=== PATIENT | female | born 1950 | race Caucasian/White ===

== ENCOUNTER → 2017-07-26 | Outpatient (CLI) | payer MEDICARE | LOC: M RAD 14:09 | DX: E04.1 Nontoxic single thyroid nodule (principal) | CPT/HCPCS: 76536 ==

== ENCOUNTER → 2017-08-15 | Outpatient (CLI) | payer MEDICARE | LOC: M RAD 08:50 | DX: E05.00 Thyrotoxicosis with diffuse goiter without thyrotoxic crisis or storm (principal) | CPT/HCPCS: 78012 ==

== ENCOUNTER → 2017-10-18 | Outpatient (CLI) | payer MEDICARE ==
[2017-10-18 12:26] LABS: FREE T4 1.08 NG/DL (0.76-1.46)
[2017-10-18 12:28] LABS: TOTAL T3 123.1 NG/DL (60.0-181.0)
== END ==
LOC: M LAB 11:22
DX: E05.00 Thyrotoxicosis with diffuse goiter without thyrotoxic crisis or storm (principal)
CPT/HCPCS: 84443

== ENCOUNTER → 2020-02-26 | Outpatient (CLI) | payer MEDICARE ==
[2020-02-26 12:12] LABS: HEMATOCRIT 40.2 % (36.0-47.0); HEMOGLOBIN 12.9 g/dl (12.0-15.5); MEAN CORPUSCULAR HEMOGLOBIN 30.4 pg (27.0-33.0); MEAN CORPUSCULAR HGB CONC 32.1 g/dl (32.0-36.5); MEAN CORPUSCULAR VOLUME 94.8 fl (80.0-96.0); PLATELET COUNT, AUTOMATED 288 10^3/uL (150-450); RED BLOOD COUNT 4.24 10^6/uL (4.00-5.40); WHITE BLOOD COUNT 8.7 10^3/uL (4.0-10.0)
[2020-02-26 12:44] LABS: ALBUMIN 3.6 GM/DL (3.2-5.2); BILIRUBIN,TOTAL 0.5 MG/DL (0.2-1.0); CALCIUM LEVEL 9.4 MG/DL (8.8-10.2); CHOLESTEROL RISK RATIO 4.756 (<5); CREATININE FOR GFR 1.15 MG/DL (0.55-1.30); POTASSIUM SERUM 4.6 MEQ/L (3.5-5.1); THYROID STIMULATING HORMONE 1.28 uIU/ML (0.358-3.740); TOTAL PROTEIN 8.1 GM/DL (6.4-8.2)
[2020-02-26 12:48] LABS: TOTAL 25(OH) VITAMIN D 24.1 NG/ML (30.0-100.0)
[2020-02-26 13:22] LABS: HEMOGLOBIN A1c 6.3 %
--- NOTE | 2020-02-28 19:23 | ECGEPIP ---
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
--- NOTE | 2020-03-03 12:51 | REP ---
CHEST X-RAY: 2-VIEWS HISTORY: Hypertension and fibroglandular. Hypothyroid. COMPARISON: Chest x-ray 10/22/2006. FINDINGS: The lungs are well-inflated and remain clear. The pleural angles are sharp. Heart size is normal. There is minimal linear fibrosis anteriorly in the retrosternal clear space on the lateral radiograph. There are degenerative disc changes in the thoracic spine. Heart size is normal. Pulmonary vasculature is not increased. IMPRESSION: No active disease. MTDD
== END ==
LOC: M LAB 10:44
PROVIDERS: ATTEND Family Medicine
DX: E03.9 Hypothyroidism, unspecified (principal); I10 Essential (primary) hypertension; R53.83 Other fatigue; Z79.899 Other long term (current) drug therapy

== ENCOUNTER 2020-11-05 18:39 | Emergency (ER) | payer MEDICARE ==
[~2020-11-05] VITALS: Ht 170.2 cm; Wt 85.8 kg
[2020-11-05] MEDS ORDERED: CAND16TA7 (18:48)
[2020-11-05] MEDS ORDERED: ERGO500029 (18:49)
[2020-11-05] MEDS ORDERED: PROP20TA72 (18:49)
[2020-11-05] MEDS ORDERED: KETOROLAC 30 MG/ML 1ML VIAL IV ONE (19:45)
[2020-11-05] MEDS ORDERED: NS 500 ML IV ONE (19:45)
[2020-11-05 19:50] LABS: BASO % 0.3 % (0.0-1.0); EOS # 0.1 10^3/uL (0.0-0.5); EOS % 1.4 % (0.0-3.0); HEMATOCRIT 40.8 % (36.0-47.0); HEMOGLOBIN 13.2 g/dl (12.0-15.5); LYMPH # 2.3 10^3/uL (1.5-5.0); LYMPH % 22.9 % (24.0-44.0); MEAN CORPUSCULAR HEMOGLOBIN 30.8 pg (27.0-33.0); MEAN CORPUSCULAR HGB CONC 32.4 g/dl (32.0-36.5); MEAN CORPUSCULAR VOLUME 95.1 fl (80.0-96.0); MONO # 0.9 10^3/uL (0.0-0.8); MONO % 9.3 % (2.0-8.0); NEUTROPHILS # 6.5 10^3/uL (1.5-8.5); NEUTROPHILS % 65.5 % (36.0-66.0); PLATELET COUNT, AUTOMATED 278 10^3/uL (150-450); RED BLOOD COUNT 4.29 10^6/uL (4.00-5.40); WHITE BLOOD COUNT 9.9 10^3/uL (4.0-10.0)
[2020-11-05 20:10] LABS: ALBUMIN 3.8 GM/DL (3.2-5.2); ALT/SGPT 19 U/L (12-78); BILIRUBIN,DIRECT < 0.1 MG/DL (0.0-0.2); BILIRUBIN,TOTAL 0.4 MG/DL (0.2-1.0); LIPASE 191 U/L (73-393); TOTAL PROTEIN 8.5 GM/DL (6.4-8.2)
--- NOTE | 2020-11-05 21:13 | REPVR ---
PROCEDURE INFORMATION: Exam: CT Abdomen And Pelvis Without Contrast Exam date and time: 11/05/2020 8:15 PM Age: 70 years old Clinical indication: Other: L flank pain, difficulty urinating, HX of stones TECHNIQUE: Imaging protocol: Computed tomography of the abdomen and pelvis without contrast. Radiation optimization: All CT scans at this facility use at least one of these dose optimization techniques: automated exposure control; mA and/or kV adjustment per patient size (includes targeted exams where dose is matched to clinical indication); or iterative reconstruction. COMPARISON: No relevant prior studies available. FINDINGS: Liver: Normal. No mass. Gallbladder and bile ducts: Normal. No calcified stones. No ductal dilation. Pancreas: Normal. No ductal dilation. Spleen: Normal. No splenomegaly. Adrenal glands: Normal. No mass. Kidneys and ureters: 3 mm obstructing calculus at the left ureteral vesicular junction. Mild left hydroureter and hydronephrosis. Multiple bilateral large renal calculi. The largest on the right measures 3 cm at the lower pole of the right kidney. The largest on the left measures 2.8 cm at the lower pole. Stomach and bowel: Diverticulosis of the sigmoid colon. Appendix: No evidence of appendicitis. Intraperitoneal space: Unremarkable. No free air. No significant fluid collection. Vasculature: Unremarkable. No abdominal aortic aneurysm. Lymph nodes: Unremarkable. No enlarged lymph nodes. Urinary bladder: Unremarkable as visualized. Reproductive: Unremarkable as visualized. Bones/joints: In degenerative changes of bilateral hip joints. Soft tissues: Unremarkable. IMPRESSION: Mild left hydronephrosis and hydroureter with a 3 mm obstructing calculus at the left ureteral vesicular junction. Electronically signed by: Nitin Bowman On 11/05/2020 21:13:17 PM
[2020-11-05] MEDS ORDERED: FLOM0.4C39 PO (22:07)
[2020-11-05] MEDS ORDERED: MACR100C43 PO (22:09)
[2020-11-05] MEDS ORDERED: HYDR-3713 PO (22:10)
[2020-11-05 22:15] VITALS: BP 129/59
[2020-11-05] MEDS ORDERED: TAMSULOSIN 0.4 MG CAP PO ONE (22:15)
== END 2020-11-05 22:37 | disposition home or self-care (01) ==
LOC: M ED 18:39
DX: N13.2 Hydronephrosis with renal and ureteral calculous obstruction (principal); N39.0 Urinary tract infection, site not specified; E86.0 Dehydration; N23 Unspecified renal colic; I10 Essential (primary) hypertension; R00.2 Palpitations; Z88.0 Allergy status to penicillin; Z88.2 Allergy status to sulfonamides; Z79.899 Other long term (current) drug therapy
CPT/HCPCS: 74176; 80047; 80076; 81001; 83690; 85025; 87086; 96361; 96374; 99284; J1885

== ENCOUNTER 2020-12-18 08:02 | Emergency (ER) | payer MEDICARE ==
[~2020-12-18] VITALS: Ht 167.6 cm; Wt 85.3 kg
[~2020-12-18 08:02] MED LIST: CAND16TA7; ERGO500029; FLOM0.4C39 PO; HYDR-3713 PO; MACR100C43 PO; PROP20TA72
[2020-12-18] MEDS ORDERED: AZIT500T5 PO (08:14)
[2020-12-18] MEDS ORDERED: ACET1TAB55 PO (08:14)
[2020-12-18] MEDS ORDERED: ACETAMINOPHEN 500 MG TAB PO ONE (09:35)
[2020-12-18] MEDS ORDERED: NS 1,000 ML IV ONE (09:35)
[2020-12-18 10:04] LABS: BASO % 0.2 % (0.0-1.0); EOS % 0.1 % (0.0-3.0); HEMATOCRIT 38.1 % (36.0-47.0); HEMOGLOBIN 12.4 g/dl (12.0-15.5); LYMPH # 1.9 10^3/uL (1.5-5.0); LYMPH % 14.1 % (24.0-44.0); MEAN CORPUSCULAR HEMOGLOBIN 30.6 pg (27.0-33.0); MEAN CORPUSCULAR HGB CONC 32.5 g/dl (32.0-36.5); MEAN CORPUSCULAR VOLUME 94.1 fl (80.0-96.0); MONO # 0.8 10^3/uL (0.0-0.8); MONO % 5.8 % (2.0-8.0); NEUTROPHILS # 10.5 10^3/uL (1.5-8.5); NEUTROPHILS % 79.3 % (36.0-66.0); PLATELET COUNT, AUTOMATED 267 10^3/uL (150-450); RED BLOOD COUNT 4.05 10^6/uL (4.00-5.40); WHITE BLOOD COUNT 13.3 10^3/uL (4.0-10.0)
[2020-12-18 10:36] LABS: CALCIUM LEVEL 9.3 MG/DL (8.8-10.2); CREATININE FOR GFR 1.16 MG/DL (0.55-1.30); GLOMERULAR FILTRATION RATE 49.3 (>45); POTASSIUM SERUM 4.4 MEQ/L (3.5-5.1)
--- NOTE | 2020-12-18 12:33 | REP ---
INDICATION: low back pain, h/o kidney stones, UTI. COMPARISON: Multiple the latest 11/05/2020 TECHNIQUE: Standard noncontrast enhanced stone protocol helical technique FINDINGS: The lung bases are essentially clear and unchanged. The small calculus seen previously in the left ureterovesical junction is no longer present. Slight degree of hydronephrosis and hydroureter seen on the prior exam has abated. Chronic bilateral staghorn calculi are again noted and appear unchanged. Other chronic bilateral renal changes are noted status quo. There are multiple bilateral renal cysts. Once again, multiple appendicoliths are again identified and are unchanged from the latest prior, however, these have developed since the 12/22/2011 CT. There are no other appendiceal changes. There is no free fluid or free air. There is sigmoid colon diverticulosis status quo. There is no change in the solid intra-abdominal organs are wall bladder. There is no change in appearance of the abdominal aorta or para-aortic regions. The pancreas and adrenal glands are unchanged. Bone window technique throughout the examination shows chronic osseous changes status quo. IMPRESSION: 1. Resolved previously seen acute left renal findings and left UV junction calculus as described above. 2. Bilateral chronic renal changes as described above. 3. Sigmoid colon diverticulosis. 4. Other findings as described above. <Electronically signed by Carlos Adam > 12/18/20 [id number]
[2020-12-18] MEDS ORDERED: CEFD300C PO (13:00)
[2020-12-18 13:28] VITALS: BP 120/58
== END 2020-12-18 13:24 | disposition home or self-care (01) ==
LOC: M ED 08:02
DX: N39.0 Urinary tract infection, site not specified (principal); N28.1 Cyst of kidney, acquired; K57.30 Diverticulosis of large intestine without perforation or abscess without bleeding; I48.91 Unspecified atrial fibrillation; I10 Essential (primary) hypertension; Z79.899 Other long term (current) drug therapy; Z88.0 Allergy status to penicillin; Z88.1 Allergy status to other antibiotic agents; Z88.2 Allergy status to sulfonamides; Z88.8 Allergy status to other drugs, medicaments and biological substances

== ENCOUNTER → 2021-01-14 | Outpatient (CLI) | payer MEDICARE ==
[~2021-01-14] MED LIST changes: +ACET1TAB55 PO; +AZIT500T5 PO; -CAND16TA7; +CAND16TA7 PO; +CEFD300C PO; +D31000TA2 PO; -PROP20TA72; +PROP20TA72 PO
== END ==
LOC: M LABSMTC 12:49
PROVIDERS: ATTEND Anesthesiology
DX: Z01.818 Encounter for other preprocedural examination (principal); I12.9 Hypertensive chronic kidney disease with stage 1 through stage 4 chronic kidney disease, or unspecified chronic kidney disease; N18.9 Chronic kidney disease, unspecified; Z20.822 Contact with and (suspected) exposure to COVID-19; Z79.899 Other long term (current) drug therapy
CPT/HCPCS: 36415; 71046; 80053; 80061; 81001; 83036; 84443; 85027; 85610; 87086; 93005; U0003

== ENCOUNTER → 2021-01-14 | Outpatient (CLI) | payer MEDICARE ==
--- NOTE | 2021-01-14 11:17 | REP ---
INDICATION: HTN *LABS 1ST, EKG 2ND, XRY 3RD* COMPARISON: None. TECHNIQUE: PA and lateral. FINDINGS: The mediastinum and cardiac silhouette are normal. The lung stiles are clear and without acute consolidation, effusion, or pneumothorax. The skeletal structures are intact and normal. IMPRESSION: No acute cardiopulmonary process. 02/26/2020 <Electronically signed by Scott Calixto > 01/14/21 1113
[2021-01-14 12:04] LABS: HEMATOCRIT 40.4 % (36.0-47.0); HEMOGLOBIN 12.8 g/dl (12.0-15.5); MEAN CORPUSCULAR HEMOGLOBIN 30.5 pg (27.0-33.0); MEAN CORPUSCULAR HGB CONC 31.7 g/dl (32.0-36.5); MEAN CORPUSCULAR VOLUME 96.2 fl (80.0-96.0); PLATELET COUNT, AUTOMATED 234 10^3/uL (150-450); WHITE BLOOD COUNT 9.2 10^3/uL (4.0-10.0)
[2021-01-14 12:06] LABS: APPEARANCE, URINE HAZY (CLEAR); BACTERIA, URINE AUTO 1+ (NEGATIVE); BILIRUBIN, URINE AUTO NEGATIVE (NEGATIVE); BLOOD, URINE BLOOD 3+ (NEGATIVE); COLOR, URINE YELLOW (YELLOW); GLUCOSE, URINE (UA) AUTO NEGATIVE (NEGATIVE); KETONE, URINE AUTO NEGATIVE (NEGATIVE); LEUKOCYTE ESTERASE, URINE AUTO 1+ (NEGATIVE); MUCUS, URINE SMALL (NEGATIVE); NITRITE, URINE AUTO NEGATIVE (NEGATIVE); PROTEIN, URINE AUTO NEGATIVE (NEGATIVE); RBC, URINE AUTO 118 /HPF (0-3); SPECIFIC GRAVITY URINE AUTO 1.012 (1.002-1.035); SQUAMOUS EPITHELIAL CELL UR AU 1 /HPF (0-6); UROBILINOGEN, URINE AUTO 0.2 mg/dL (0.0-2.0); WBC, URINE AUTO 13 /HPF (0-3)
[2021-01-14 12:17] LABS: INR 1.1; PROTHROMBIN TIME 14.6 SECONDS (12.7-14.5)
[2021-01-14 12:46] LABS: HEMOGLOBIN A1c 6.4 %
[2021-01-14 13:02] LABS: ALBUMIN 3.5 GM/DL (3.2-5.2); BILIRUBIN,TOTAL 0.7 MG/DL (0.2-1.0); CALCIUM LEVEL 9.3 MG/DL (8.8-10.2); CHOLESTEROL RISK RATIO 4.425 (<5); CREATININE FOR GFR 1.07 MG/DL (0.55-1.30); GLOMERULAR FILTRATION RATE 54.1 (>45); POTASSIUM SERUM 4.5 MEQ/L (3.5-5.1); THYROID STIMULATING HORMONE 0.976 uIU/ML (0.358-3.740); TOTAL PROTEIN 7.9 GM/DL (6.4-8.2)
--- NOTE | 2021-01-15 10:04 | ECGEPIP ---
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
== END ==
LOC: M LAB 10:17
PROVIDERS: ATTEND Family Medicine
DX: Z01.818 Encounter for other preprocedural examination (principal); I12.9 Hypertensive chronic kidney disease with stage 1 through stage 4 chronic kidney disease, or unspecified chronic kidney disease; N18.9 Chronic kidney disease, unspecified

== ENCOUNTER → 2021-02-03 | Outpatient (POV) | payer MEDICARE ==
[~2021-02-03] VITALS: Ht 170.2 cm; Wt 81.8 kg
[2021-02-03 08:25] VITALS: BP 138/63
--- NOTE | 2021-02-05 08:44 | IRCOV ---
[facility] IR Consult Office Visit IR Consult Office Visit DATE: Feb 03, 2021 REASON FOR CONSULTATION/CHIEF COMPLAINT: Left kidney stone. Needs PCNL access. HISTORY OF PRESENT ILLNESS: 70-year-old female with 10-year long history of bilateral kidney stones. Patient reports intermittent infections requiring antibiotics. Patient recently passed a stone which landed her in the ER with flank pain. She reports passing stones up to 8 mm in size. She reports 1 prior lithotripsy many years ago, she is not sure which kidney. She cannot recall when. She denies any current left flank pain. She denies any hematuria, fevers or chills. ALLERGIES: Please see below. HOME MEDICATIONS: Please see below. PAST MEDICAL HISTORY: Hypertension UTI PAST SURGICAL HISTORY: Hysterectomy Heart ablation 2003 Lithotripsy x1 FAMILY HISTORY: kidney stones. SOCIAL HISTORY: Non-smoker. Denies alcohol or drugs. REVIEW OF SYSTEMS: Otherwise negative. PHYSICAL EXAMINATION: VITAL SIGNS: Please see below. GENERAL APPEARANCE: Appears well. Comfortable at rest. HEENT: No scleral icterus. RESPIRATORY: Normal breathing at rest. CARDIOVASCULAR: Normal rate. ABDOMEN: Soft nontender. EXTREMITIES: No edema. NEUROLOGICAL: Alert and oriented. PSYCHIATRIC: Appropriate to circumstance. LABORATORY DATA: 12/25/2020 hemoglobin 12.8 hematocrit 40.4 WBC 9.2 platelets 234. Sodium 139 potassium 4.5 BUN 22 creatinine 1.07 GFR 54.1 INR 1.1 Imaging: I personally reviewed the CT abdomen pelvis without contrast performed 12/18/2020. Bilateral staghorn calculi. Low-density cysts in the kidneys bilaterally. Right kidney is atrophic compared to the left kidney. No significant hydronephrosis or hydroureter. ASSESSMENT/PLAN: 70-year-old female with long history of bilateral kidney stones, presents for left PCNL access. We discussed the risks and benefits of left nephroureteral access and catheter placement for PCNL. Patient agreed to proceed. We have scheduled the patient for left nephroureteral access and catheter placement for PCNL. I spent 30 minutes in consultation with the patient. Thank you for this referral. CC Dr. Givens Allergies Coded Allergies: Penicillins (Verified Allergy, Mild, rash, 01/13/21) Quinolones (Verified Allergy, Unknown, 01/13/21) Sulfa (Sulfonamide Antibiotics) (Verified Allergy, Unknown, 01/13/21) Home Medications Scheduled Acetaminophen (Acetaminophen), 1 TAB PO DAILYPRN, (Reported) Candesartan Cilexetil (Candesartan Cilexetil), PO QHS, (Reported) Cholecalciferol (Vitamin D3) (Vitamin D3), 1,000 UNITS PO PRN, (Reported) Propranolol HCl (Propranolol HCl), PO BID, (Reported) VS, I&O, 24H, Fishbone Vital Signs/I&O Vital Signs Date Time Temp Pulse Resp B/P (MAP) Pulse Ox O2 Delivery O2 Flow Rate FiO2 02/03/21 08:25 97.4 72 20 138/63 (88) 100 Room Air RADHA OGDEN MD Feb 05, 2021 08:44
== END ==
LOC: M IRPOV 08:05
PROVIDERS: ATTEND Radiology Diagnostic Radiology
DX: N20.0 Calculus of kidney (principal); I10 Essential (primary) hypertension; Z79.899 Other long term (current) drug therapy; Z87.440 Personal history of urinary (tract) infections; Z88.0 Allergy status to penicillin; Z88.1 Allergy status to other antibiotic agents; Z88.2 Allergy status to sulfonamides; Z90.710 Acquired absence of both cervix and uterus

== ENCOUNTER → 2021-02-24 | Outpatient (CLI) | payer MEDICARE ==
[2021-02-24 13:11] LABS: HEMATOCRIT 39.8 % (36.0-47.0); HEMOGLOBIN 12.6 g/dl (12.0-15.5); MEAN CORPUSCULAR HEMOGLOBIN 30.2 pg (27.0-33.0); MEAN CORPUSCULAR HGB CONC 31.7 g/dl (32.0-36.5); MEAN CORPUSCULAR VOLUME 95.4 fl (80.0-96.0); PLATELET COUNT, AUTOMATED 266 10^3/uL (150-450); RED BLOOD COUNT 4.17 10^6/uL (4.00-5.40); WHITE BLOOD COUNT 9.8 10^3/uL (4.0-10.0)
[2021-02-24 13:20] LABS: INR 0.98; PROTHROMBIN TIME 13.4 SECONDS (12.7-14.5)
[2021-02-24 14:53] LABS: HEMOGLOBIN A1c 6.1 %
[2021-02-24 17:45] LABS: ALBUMIN 3.7 GM/DL (3.2-5.2); BILIRUBIN,TOTAL 0.6 MG/DL (0.2-1.0); CALCIUM LEVEL 9.7 MG/DL (8.8-10.2); CHOLESTEROL RISK RATIO 4.522 (<5); CREATININE FOR GFR 1.04 MG/DL (0.55-1.30); GLOMERULAR FILTRATION RATE 55.9 (>45); POTASSIUM SERUM 4.5 MEQ/L (3.5-5.1); THYROID STIMULATING HORMONE 1.28 uIU/ML (0.358-3.740); TOTAL 25(OH) VITAMIN D 39.1 NG/ML (30.0-100.0); TOTAL PROTEIN 7.9 GM/DL (6.4-8.2)
== END ==
LOC: M LAB 11:18
PROVIDERS: ATTEND Family Medicine
DX: Z01.818 Encounter for other preprocedural examination (principal); I10 Essential (primary) hypertension; R53.83 Other fatigue; Z79.899 Other long term (current) drug therapy

== ENCOUNTER → 2021-02-25 | Outpatient (CLI) | payer MEDICARE | LOC: M LABSMTC 10:00 | PROVIDERS: ATTEND Anesthesiology | DX: Z01.812 Encounter for preprocedural laboratory examination (principal); Z20.822 Contact with and (suspected) exposure to COVID-19 ==

== ENCOUNTER → 2021-02-26 | Outpatient (CLI) | payer MEDICARE ==
[~2021-02-26] MED LIST changes: +CLINDAMYCIN 600 MG in IV 1 EA IV ONE; +CLINDAMYCIN 600 MG/50 ML PREMIX BAG As Ordered ONE; +ISOVUE-300 61% 50ML VIAL As Ordered ONE; +LIDOCAINE 1% MDV 20ML VIAL As Ordered ONE; +MIDAZOLAM INJ 2MG/2ML VIAL (J2250 PER 1MG) As Ordered ONE; +NS 1,000 ML IV SCH; +diphenhydrAMINE 50MG/ML VIAL (J1200) As Ordered ONE; +fentaNYL 100 MCG/2 ML INJECTION (J3010) As Ordered ONE
--- NOTE | 2021-02-26 08:31 | IRHP ---
[facility] IR Pre-Procedure H & P General Date of Service: Feb 26, 2021 Procedure: Same Day Surgery Interval History and Physical I have seen the patient and reviewed last H & P performed within 30 days. There is no significant interval change. History of Present Illness Chief Complaint The patient is a 70-year-old female admitted with a reason for visit of Kidney Stone. PRE-PROCEDURE DIAGNOSIS: Left kidney stone HEART: Normal rate. LUNGS: Normal breathing at rest. ASA Classification ASA Classification: II-Mild systemic disease Mallampati Score: II NPO: Yes Problems with prior sedation: No Obstructive Sleep Apnea: No Plan moderate sedation Allergies Coded Allergies: Penicillins (Verified Allergy, Mild, rash, 02/20/21) Quinolones (Verified Allergy, Unknown, 02/20/21) Sulfa (Sulfonamide Antibiotics) (Verified Allergy, Unknown, 02/20/21) Home Medications Scheduled Candesartan Cilexetil (Candesartan Cilexetil), 16 MG PO QHS, (Reported) Cholecalciferol (Vitamin D3) (Vitamin D3), 1,000 UNITS PO PRN, (Reported) Propranolol HCl (Propranolol HCl), PO BID, (Reported) Discontinued Medications Acetaminophen (Acetaminophen), 1 TAB PO DAILYPRN, (Reported) Discontinued Reason: Pt states not taking RADHA OGDEN MD Feb 26, 2021 08:30
[2021-02-26 12:00] VITALS: BP 151/69
--- NOTE | 2021-02-26 17:00 | IRPON ---
IR Postoperative Note Date Of Procedure: Feb 26, 2021 Time Of Procedure: 16:48 IR Postoperative Note IR Percutaneous left nephroureteral catheter placement for PCNL access using fluoroscopic guidance. IR Nephrostogram and Ureterogram. IR Moderate sedation. Clinical Information:Left kidney stone. Needs antegrade PCNL access. Physician: Dr. Shaikh. Procedure: The patient was advised of the benefits, risks, and alternatives of the procedure and informed consent was obtained. A time out was performed with verification of the patient's name, MRN, site of procedure, and type of procedure to be performed. The patient was positioned in the prone position on the angiographic table. The site was prepped and draped in the usual sterile fashion. Moderate sedation was performed by the physician including the presence of an independent trained RN who assisted in monitoring the patient's level of consciousness and physiological status. Following the administration of fentanyl and Versed, the physician spent 60 minutes of continuous [id number] time with the patient. A patient care representative radiograph reveals left renal calculus. The anticipated puncture site on the flank was anesthetized with lidocaine. Using fluoroscopy guidance, the left renal calculus was accessed with a 21-gauge Chiba needle. A nephrostogram was performed which demonstrates no significant hydronephrosis or hydroureter. Large calculus in the lower pole of the left kidney filling the lower pole calyx. A Nitrex wire was then advanced into the collecting system, under fluoroscopy guidance. The needle was manipulated under fluoroscopy guidance, around the stone and into the ureter. The needle was then exchanged for a nonvascular introducer set. A glide wire was then advanced under fluoroscopy guidance, manipulated down the ureter and into the bladder. Into the ureter, down the ureter and into the bladder, under fluoroscopy guidance. A glide cath was advanced over the wire under fluoroscopy guidance into the bladder. The sheath was removed over the wire. A 6 [place] Seidmon Catheter was then advanced under fluoroscopy guidance, over the wire, through the renal collecting system, down the ureter and into the bladder. The distal pigtail was formed. A final nephrostogram and ureterogram were performed confirming positioning of the catheter in the renal collecting system, ureter and bladder. No ureteral extravasation. The catheter was sutured in position with 2-0 Prolene and a sterile dressing applied. The patient tolerated the procedure well and was returned to the PRU in stable condition. EBL: < 5 mL. Complications:None. Conclusion: 1. Nephrostogram and Ureterogram demonstratelarge left renal calculus in the left kidney lower pole without hydronephrosis or hydroureter. 2. Successful left-sided antegrade nephroureteral access for PCNL. Patient to follow-up with urology for PCNL. Thank you for this referral. CC RADHA Toure MD Feb 26, 2021 17:00
== END ==
LOC: M IRPRO 08:03
PROVIDERS: ATTEND Radiology Diagnostic Radiology
DX: N20.0 Calculus of kidney (principal); Z88.0 Allergy status to penicillin; Z88.2 Allergy status to sulfonamides; Z88.8 Allergy status to other drugs, medicaments and biological substances
CPT/HCPCS: 50433; 87086; 99152; 99153; C1758; C1769; C1894; J1200; J2250; J3010; Q9967

== ENCOUNTER → 2021-03-02 | Outpatient (CLI) | payer MEDICARE ==
[~2021-03-02] VITALS: Ht 170.2 cm; Wt 82.1 kg
[~2021-03-02] MED LIST changes: +ACETAMINOPHEN 1000MG 100ML IV BTL (OFIRMEV) (J0131 PER 10MG) As Ordered ONE; +ACETAMINOPHEN TAB 650MG DOSE (2X325MG) PO PRN; +CAND16TA17 PO; -CAND16TA7 PO; +CANDESARTAN 16MG TABLET PO SCH; +CIPR-249 PO; -CLINDAMYCIN 600 MG in IV 1 EA IV ONE; -CLINDAMYCIN 600 MG/50 ML PREMIX BAG As Ordered ONE; +CONRAY-60 60% 50ML VIAL (Q9961) As Ordered ONE; +DOCUSATE SODIUM 100MG CAPSULE PO SCH; -ISOVUE-300 61% 50ML VIAL As Ordered ONE; -LIDOCAINE 1% MDV 20ML VIAL As Ordered ONE; +LIDOCAINE 1% MDV 20ML VIAL SQ PRN; +LIDOCAINE 2% 100MG/5ML SDV (FOR ANES.) As Ordered ONE; +LR 1,000 ML IV ONE; +ONDANSETRON 4MG/2ML VIAL As Ordered ONE; +ONDANSETRON 4MG/2ML VIAL IV PRN; +PERCOCET 5MG/325MG TAB PO PRN; +PERCOCET PO; +PROPRANOLOL 20 MG TAB PO SCH; +ROCURONIUM BROMIDE 50 MG/5 ML VIAL As Ordered ONE; +ceFAZolin SOD 1 GM in D5W MINI-BAG PLUS 50 ML IV SCH; +ceFAZolin SOD 2 GM in IV 1 EA IV ONE; +dexameTHASONE 4 MG/ML 1ML VIAL (J1100 PER 1MG) As Ordered ONE; -diphenhydrAMINE 50MG/ML VIAL (J1200) As Ordered ONE; -fentaNYL 100 MCG/2 ML INJECTION (J3010) As Ordered ONE; +fentaNYL 250 MCG/5 ML INJECTION As Ordered ONE; +propofoL 200 MG/20 ML VIAL As Ordered ONE
[2021-03-02 06:32] VITALS: BP 164/74
== END ==
LOC: M OR 06:14 → UNDOADMIN 06:14 → EDSTATUS 07:30 → M LAB 08:00 → UNDODISIN 03-04 08:52
PROVIDERS: ATTEND Urology
DX: N20.0 Calculus of kidney (principal); Z53.8 Procedure and treatment not carried out for other reasons

== ENCOUNTER → 2021-03-14 | Outpatient (CLI) | payer MEDICARE ==
[~2021-03-14] MED LIST changes: -ACETAMINOPHEN 1000MG 100ML IV BTL (OFIRMEV) (J0131 PER 10MG) As Ordered ONE; -ACETAMINOPHEN TAB 650MG DOSE (2X325MG) PO PRN; -CAND16TA17 PO; +CAND16TA7 PO; -CANDESARTAN 16MG TABLET PO SCH; -CIPR-249 PO; -CONRAY-60 60% 50ML VIAL (Q9961) As Ordered ONE; -DOCUSATE SODIUM 100MG CAPSULE PO SCH; -LIDOCAINE 1% MDV 20ML VIAL SQ PRN; -LIDOCAINE 2% 100MG/5ML SDV (FOR ANES.) As Ordered ONE; -LR 1,000 ML IV ONE; -MIDAZOLAM INJ 2MG/2ML VIAL (J2250 PER 1MG) As Ordered ONE; -NS 1,000 ML IV SCH; -ONDANSETRON 4MG/2ML VIAL As Ordered ONE; -ONDANSETRON 4MG/2ML VIAL IV PRN; -PERCOCET 5MG/325MG TAB PO PRN; -PERCOCET PO; -PROPRANOLOL 20 MG TAB PO SCH; -ROCURONIUM BROMIDE 50 MG/5 ML VIAL As Ordered ONE; -ceFAZolin SOD 1 GM in D5W MINI-BAG PLUS 50 ML IV SCH; -ceFAZolin SOD 2 GM in IV 1 EA IV ONE; -dexameTHASONE 4 MG/ML 1ML VIAL (J1100 PER 1MG) As Ordered ONE; -fentaNYL 250 MCG/5 ML INJECTION As Ordered ONE; -propofoL 200 MG/20 ML VIAL As Ordered ONE
== END ==
LOC: M LABSMTC 09:30
PROVIDERS: ATTEND Anesthesiology
DX: Z01.812 Encounter for preprocedural laboratory examination (principal); Z20.822 Contact with and (suspected) exposure to COVID-19

== ENCOUNTER → 2021-03-17 | Outpatient (POV) | payer MEDICARE ==
[~2021-03-17] VITALS: Ht 167.6 cm; Wt 81.8 kg
[~2021-03-17] MED LIST changes: +CIPR-249 PO; +PERCOCET PO
[2021-03-17 08:07] VITALS: BP 133/66
--- NOTE | 2021-03-19 11:53 | IRPN ---
[facility] IR Progress Note IR Progress Note DATE: Mar 17, 2021 FOLLOW-UP: Patient has not had her PCNL as she was rescheduled due to OR reasons. She still has a left nephroureteral Siedmon catheter in place. Patient has rescheduled PCNL for later this week. ON EXAMINATION: Nephroureteral access site without redness or tenderness. IMPRESSION: Follow-up with urology for PCNL. If PCNL is not performed within a month, patient to call us to schedule catheter exchange. Allergies Coded Allergies: Penicillins (Verified Allergy, Mild, rash, 03/19/21) Quinolones (Verified Allergy, Unknown, 03/19/21) Sulfa (Sulfonamide Antibiotics) (Verified Allergy, Unknown, 03/19/21) VS,Fishbone, I+O VS, Fishbone, I+O Vital Signs Date Time Temp Pulse Resp B/P (MAP) Pulse Ox O2 Delivery O2 Flow Rate FiO2 03/17/21 08:07 97.6 61 20 133/66 (88) 100 Room Air RADHA OGDEN MD Mar 19, 2021 11:53
== END ==
LOC: M IRPOV 07:58
PROVIDERS: ATTEND Radiology Diagnostic Radiology
DX: Z46.6 Encounter for fitting and adjustment of urinary device (principal); Z88.0 Allergy status to penicillin; Z88.1 Allergy status to other antibiotic agents; Z88.2 Allergy status to sulfonamides

== ENCOUNTER → 2021-03-17 | Outpatient (CLI) | payer MEDICARE ==
[~2021-03-17] MED LIST changes: -CIPR-249 PO; -PERCOCET PO
== END ==
LOC: M LAB 14:40
PROVIDERS: ATTEND Urology
DX: N20.0 Calculus of kidney (principal); N39.0 Urinary tract infection, site not specified

== ENCOUNTER → 2021-03-18 | Outpatient (REF) | payer MEDICARE ==
[~2021-03-18] MED LIST changes: +CIPR-249 PO; +PERCOCET PO
== END ==
LOC: M SMT 14:47
PROVIDERS: ATTEND Urology
DX: N20.0 Calculus of kidney (principal); N39.0 Urinary tract infection, site not specified

== ENCOUNTER 2021-03-19 06:18 | Inpatient (IN) | payer MEDICARE ==
[~2021-03-19] VITALS: Ht 170.2 cm; Wt 83.5 kg
[2021-03-19] VITALS (8 sets, daily range): BP systolic 110–120; BP diastolic 51–68
[~2021-03-19 06:18] MED LIST changes: -CIPR-249 PO; +LR 1,000 ML IV ONE; -PERCOCET PO
--- OUTSIDE RECORDS SUMMARY | 2021-03-19 06:23 | CCD ---
Author Author [facility] Organization [facility] Address Unknown Phone Unavailable Care Team Providers Care Citizenship Teacher Name Role Phone Eulalio Givens Unavailable PROBLEMS Type Condition ICD9-CM Code QOG99-QN Code Onset Dates Condition S tatus W/U Status Risk SNOMED Code Notes Problem Preop testing Z01.818 Active confirmed 32650 9001 Problem UTI (urinary tract infection) N39.0 Active confirm ed 54677881 Problem Ureteral Stone 592.1 Active confirmed 24647 009 Problem Kidney stone N20.0 Active confirmed 0655131 7 ALLERGIES Allergen (clinical drug ingredient) Drug/Non Drug Allergy do cumented on EMR Reaction Allergy Type Onset Date Status ciprofloxacin Cipro([facility] Code:[address]-37) rash Drug Allergy Active Penicillin (For Allergies Use Only) rash Drug Allerg y Active ENCOUNTERS from 1950 to 2021-02-26 Encounter Location Date Provider Diagnosis [facility] [address] [phone] [place] [address] Feb, Eulalio Givens IMMUNIZATIONS No Information SOCIAL HISTORY Tobacco Use: Social History Observation Description Date Details (start date - stop date) Never Smoker Sex Assigned At : Social History Observation Description Sex Assigned At Unknown Language: Question Answer Notes Languages spoken: Bermudian Alcohol Screening: Question Answer Notes Did you have a drink containing alcohol in the past year? No Points 0 Interpretation Negative Tobacco Use: Question Answer Notes Are you a: never smoker REASON FOR REFERRAL No Information VITAL SIGNS No information MEDICATIONS Medication SIG (Take, Route, Frequency, Duration) Notes Start Da te End Date Status Propranolol HCl 20 MG/5ML 5 ml Orally Once a day for 30 day(s) Active Menest 0.3 MG 1 tablet Orally Daily for Three Weeks, 1 Week of f for 30 day(s) Not-Taking Atacand 16 MG 1 tablet Orally Once a day for 30 day(s) Not-Taking Inderal LA 40 mg 1 capsule Orally bid for 30 day(s) Not-Taking Candesartan Cilexetil 16 MG 1 tablet Orally Once a day for 30 day(s) Active PROCEDURES No Information RESULTS No Results REASON FOR VISIT urine cult MEDICAL (GENERAL) HISTORY Type Description Date Medical History Hypertension Medical History kidney stones Medical History UTI Surgical History Lithotripsy 11/2008 Surgical History Ablation (heart) 09/2002 Surgical History Hysterectomy 07/1996 Hospitalization History surgery related Goals Section No Information Health Concerns No Information MEDICAL EQUIPMENT No Information MENTAL STATUS No Information FUNCTIONAL STATUS No Information ASSESSMENTS No Information PLAN OF TREATMENT Next Appt Details Provider Name:Eulalio Givens, 2020-10- 11:00:00 AM, [address], , [place], [address], Insurance Providers Payer Name Payer Address Payer Phone Insured Name Patient Relati onship to Insured Coverage Start Date Coverage End Date MEDICARE COMPLETE [employer] [address] [address] [facility] [id number] LYUDMILA YANG self
--- OUTSIDE RECORDS SUMMARY | 2021-03-19 06:23 | CCD | Continuity of Care Document ---
Author Author Shawnee SMITH MD Organization Unknown Address [address] [place] [address] [place] [address] Phone [phone] Care Team Providers Care Spanish Translator Name Role Phone Brandy May MD AUTM [phone] Eulalio Givens MD AUTM [phone] Problems Active Problems Provider Date Essential hypertension Jason Smith MD Onset: Preoperative cardiovascular examination Jason Smith MD Onset: 01/06/2021 Overweight Jason Smith MD Onset: 01/06/2021 Dietary management surveillance Jason Smith MD Onset: 01/06/2021 Electrocardiogram abnormal Jasno Smith MD Onset: 01/06 Social History Type Date Description Comments Sex Unknown ETOH Use Does not consume alcohol Tobacco Use Start: Unknown Patient has never smoked Smoking Status Reviewed: 01/06/21 Patient has never smoked Exercise Type/Frequency Does housework daily Exercise Limitations Joint Pain Allergies, Adverse Reactions, Alerts Active Allergies Criticality Reaction | Severity Comments Date Penicillin V Unable to assess criticality 01/06/2021 Cipro Unable to assess criticality 01/06/2021 Medications Active Medications SIG Qnty Indications Ordering Provide r Date Candesartan Cilexetil 16mg Tablets 1 tablet Orally Once a day Unknown 021 Propranolol HCL 20mg Tablets 1 by mouth twice a day Unknown 01/05/2021 Immunizations Description No Information Available Vital Signs Date Vital Result Comment 01/06/2021 8:21am Weight 179.00 lb Height 66 inches 5'6" BMI (Body Mass Index) 28.9 kg/m2 Heart Rate 58 /min BP Systolic Sitting 116 mmHg Omron, adult cuff/Ra BP Diastolic Sitting 66 mmHg Omron, adult cuff/R a Results Test Acquired Date Facility Test Result H/L Range Note CBC without Differential 12/18/2020 [facility] - not inter faced (315)- - White Blood Count 13.3 High 4.0-10.0 Red Blood Count 4.05 4.00-5.40 Platelets 267 150-450 Hemoglobin 12.4 Hematocrit 38.1 BMP 12/18/2020 [facility] - not interfaced (315)- - Calcium Ser/Plasma Mass/Vol 9.3 Sodium 135 Carbon Dioxide Ser/Plasm 29 Chloride Serum/Plasma 101 Potassium 4.4 Glucose 143 High 70-100 Blood Urea Nitrogen 22 High 7-18 Creatinine 1.16 High 0.6-1.0 G F R 49.3 CBC without Differential 11/05/2020 [facility] - not inter faced (315)- - White Blood Count 9.9 4.0-10.0 Red Blood Count 4.29 4.00-5.40 Platelets 278 150-450 Hemoglobin 13.2 Hematocrit 40.8 Liver Panel 11/05/2020 [facility] - not interfaced (315)- - Alkaline Phosphatase 93 Ast - Sgot 31 Alt - SGPT 19 Bilirubin Total Mass/Vol 0.4 Bilirubin Direct Mass/Vol <0.1 Protein Total 8.5 Albumin Serum/Plasma 3.8 Cholesterol Total Mass/Vol -- Laboratory test finding 11/05/2020 [facility] - not interf aced (315)- - Lipase 191 Procedures Date Code Description Status 01/06/2021 52999 Office/Outpatient New Moderate M DM 45-59 Minutes Completed 01/06/2021 33070 ECG 12-Lead Completed Medical Devices Description No Information Available Encounters Type Date Location Provider Dx Diagnosis Office Visit 01/06/2021 8:00a Main Office Jason Smith MD I10 Essential (primary) hypertension R94.31 Abnormal electrocardiogram [ ECG] [EKG] Z01.810 Encounter for preprocedural cardiovascular examination Assessments Date Code Description Provider 01/06/2021 I10 Essential (primary) hypertension Jason Smith MD 01/06/2021 R94.31 Abnormal electrocardiogram [ECG] [EKG] Jason Smith MD 01/06/2021 Z01.810 Encounter for preprocedural card iovascular examination Jason Smith MD Plan of Treatment 01/06/2021 - Jason Smith MD* I10 Essential (primary) hypertension* Recommendations:* No changes were made to the patient's current antihypertensive regimen consisting of candesartan and propranolol. Long-term evaluation and management of systemic hypertension remains with her PCP. * R94.31 Abnormal electrocardiogram [ECG] [EKG]* Recommendations:* Cardiac stress testing was not pursued because the patient has a low pretest lik elihood for hemodynamically significant CAD and she does not have any chest pain symptoms or exertional dyspnea. * Z01.810 Encounter for preprocedural cardiovascular examination* Recommendations:* Patient has preoperative cardiac clearance to undergo percutaneous nephrolithotomy for kidney stone removal under general anesthesia. * All * Follow up:* No specific arrangements were made for further cardiology follow-up. Functional Status Functional Condition Comment Date Status Independent with all ADL's Activ e Mental Status Description No Information Available Referrals Description No Information Available
--- OUTSIDE RECORDS SUMMARY | 2021-03-19 06:23 | CCD | Continuity of Care Document ---
Author Organization Unknown Address Unknown Phone Unavailable Care Team Providers Care Assistant Spa Director Name Role Phone Brandy May MD AUTM [phone] Eulalio Givens MD AUTM [phone] Problems Description No Information Available Social History Type Date Description Comments Sex Unknown Allergies, Adverse Reactions, Alerts Description No Information Available Medications Description No Information Available Immunizations Description No Information Available Vital Signs Description No Information Available Results Test Acquired Date Facility Test Result H/L Range Note CBC without Differential 11/05/2020 [facility] - not inter faced (315)- - White Blood Count 9.9 4.0-10.0 Red Blood Count 4.29 4.00-5.40 Platelets 278 150-450 Hemoglobin 13.2 Hematocrit 40.8 Liver Panel 11/05/2020 [facility] - not interfaced (315)- - Alkaline Phosphatase 93 Ast - Sgot 31 Alt - SGPT 19 Bilirubin Total Mass/Vol 0.4 Bilirubin Direct Mass/Vol <0.1 Protein Total 8.5 Albumin Serum/Plasma 3.8 Cholesterol Total Mass/Vol -- Laboratory test finding 11/05/2020 [facility] - not interf aced (315)- - Lipase 191 Procedures Description No Information Available Medical Devices Description No Information Available Encounters Description No Information Available Assessments Description No Information Available Plan of Treatment No Information Available Functional Status Description No Information Available Mental Status Description No Information Available Referrals Description No Information Available
--- OUTSIDE RECORDS SUMMARY | 2021-03-19 06:23 | CCD ---
Author Author [facility]st em[facility] Organization [facility] Syst ems Address Unknown Phone Unavailable Care Team Providers Care Salesperson Sheet Music Name Role Phone ChonEulalio mayfield Unavailable PROBLEMS Type Condition ICD9-CM Code [id number] Code Onset Dates Condition S tatus W/U Status Risk SNOMED Code Notes Problem Preop testing Z01.818 Active confirmed 83869 9001 Problem UTI (urinary tract infection) N39.0 Active confirm ed 82308636 Problem Ureteral Stone 592.1 Active confirmed 29116 009 Problem Kidney stone N20.0 Active confirmed 0295228 7 ALLERGIES Allergen (clinical drug ingredient) Drug/Non Drug Allergy do cumented on EMR Reaction Allergy Type Onset Date Status ciprofloxacin Cipro([facility] Code:[address]-27) rash Drug Allergy Active Penicillin (For Allergies Use Only) rash Drug Allerg y Active ENCOUNTERS from 1950 to 2021-03-13 Encounter Location Date Provider Diagnosis [facility] U[facility] [address] [phone] [place] [address] Feb, Eulalio Givens Kidney stone N20.0 and UTI (urinary trac t infection) N39.0 IMMUNIZATIONS No Information SOCIAL HISTORY Tobacco Use: Social History Observation Description Date Details (start date - stop date) Never Smoker Sex Assigned At : Social History Observation Description Sex Assigned At Unknown Language: Question Answer Notes Languages spoken: [place] Alcohol Screening: Question Answer Notes Did you [...] Information RESULTS No Results REASON FOR VISIT ORDERS MEDICAL (GENERAL) HISTORY Type Description Date Medical History Hypertension Medical History kidney stones Medical History UTI Surgical History Lithotripsy 11/2008 Surgical History Ablation (heart) 09/2002 Surgical History Hysterectomy 07/1996 Hospitalization History surgery related Goals Section No Information Health Concerns No Information MEDICAL EQUIPMENT No Information MENTAL STATUS No Information FUNCTIONAL STATUS No Information ASSESSMENTS Encounter Date Diagnosis Assessment Notes Treatment Notes Treatm ent Clinical Notes Feb, UTI (urinary tract infection) (ICD-10 - N39.0) Feb, Kidney stone (ICD-10 - N20.0) PLAN OF TREATMENT Treatment Notes Test Name Order Date URINE CULTURE 2021-03-13 Next Appt Details Provider Name:Eulaliomaricel Givens, 08:15:00 AM, [address], , [place], [address], Insurance Providers Payer Name Payer Address Payer Phone Insured Name Patient Relati onship to Insured Coverage Start Date Coverage End Date MEDICARE COMPLETE [employer] [address] [address] [facility] [address] LYUDMILA YANG self
--- OUTSIDE RECORDS SUMMARY | 2021-03-19 06:23 | CCD | Continuity of Care Document ---
Author Author Shawnee SMITH MD Organization Unknown Address [address] [place] [address] [place] [address] Phone [phone] Care Team Providers Care Tangled Yarn Spool Straightener Name Role Phone Brandy May MD AUTM [phone] Eulalio Givens MD AUTM [phone] Problems Active Problems Provider Date Essential hypertension Jason Smith MD Onset: Preoperative cardiovascular examination Jason Smith MD Onset: 01/06/2021 Overweight Jason Smith MD Onset: 01/06/2021 Dietary management surveillance Jason Smith MD Onset: 01/06/2021 Electrocardiogram abnormal Jason Smith MD Onset: 01/06 Social History Type [...] H/L Range Note CBC without Differential 12/18/2020 [facility] - not inter faced (315)- - White [...] F R 49.3 CBC without Differential 11/05/2020 [facility] - not inter faced (315)- - White Blood Count 9.9 4.0-10.0 Red Blood Count 4.29 4.00-5.40 Platelets 278 150-450 Hemoglobin 13.2 Hematocrit 40.8 Liver Panel 11/05/2020 [facility] - not interfaced (315)- - Alkaline Phosphatase 93 Ast - Sgot 31 Alt - SGPT 19 Bilirubin Total Mass/Vol 0.4 Bilirubin Direct Mass/Vol <0.1 Protein Total 8.5 Albumin Serum/Plasma 3.8 Cholesterol Total Mass/Vol -- Laboratory test finding 11/05/2020 [facility] - not interf aced (315)- - Lipase 191 Procedures Date Code Description Status 01/06/2021 06505 Office/Outpatient New Moderate M DM 45-59 Minutes Completed 01/06/2021 00420 ECG 12-Lead Completed Medical Devices Description No [...] - Jason Smith MD* I10 Essential (primary) hypertension * R94.31 Abnormal electrocardiogram [ECG] [EKG] * Z01.810 Encounter for preprocedural cardiovascular examination * All * Follow up:* No specific arrangements were made for further cardiology follow-up. Functional Status Functional Condition Comment Date Status Independent with all ADL's Activ e Mental Status Description No Information Available Referrals Description No Information Available
--- OUTSIDE RECORDS SUMMARY | 2021-03-19 06:23 | CCD ---
Author Author [facility] Organization [facility] Syst ems Address Unknown Phone Unavailable Care Team Providers Care Belt Puncher Name Role Phone Luiz Mares Unavailable PROBLEMS Type Condition ICD9-CM Code [id number] Code Onset Dates Condition S tatus W/U Status Risk SNOMED Code Notes Problem Ureteral Stone 592.1 Active confirmed 65168 009 Problem Kidney stone N20.0 Active confirmed 2436423 7 ALLERGIES Allergen (clinical drug ingredient) Drug/Non Drug Allergy do cumented on EMR Reaction Allergy Type Onset Date Status ciprofloxacin Cipro([facility] Code:[address]-24) rash Drug Allergy Active Penicillin (For Allergies Use Only) rash Drug Allerg y Active ENCOUNTERS from 1950 to 2020-12-25 Encounter Location Date Provider Diagnosis [facility] Urology [address] [phone] [place] [address] Dec, Luiz Mares Kidney stone N20.0 and Preop testing Z01 .818 IMMUNIZATIONS No Information SOCIAL HISTORY Tobacco Use: Social History Observation Description Date Details (start date - stop date) Never Smoker Sex Assigned At : Social History Observation Description Sex Assigned At Unknown Language: Question Answer Notes Languages spoken: Swedish Alcohol Screening: Question Answer Notes Did you have a drink containing alcohol in the past year? No Points 0 Interpretation Negative Tobacco Use: Question Answer Notes Are you a: never smoker REASON FOR REFERRAL No Information VITAL SIGNS Weight 180 lbs Dec, Weight-kg 81.65 kg Dec, Height 67 in Dec, BMI 28.19 kg/m2 Dec, Heart Rate 65 /min Dec, Respiratory Rate 17 /min Dec, Temperature 96.9 degrees Fahrenheit Dec, Oximetry 99 Dec, Blood pressure systolic 118 mm Hg Dec, Blood pressure diastolic 64 mm Hg Dec, MEDICATIONS Medication SIG (Take, Route, Frequency, Duration) Notes Start Da te End Date Status Inderal LA 40 mg 1 capsule Orally bid for 30 day(s) Not-Taking Candesartan Cilexetil 16 MG 1 tablet Orally Once a day for 30 day(s) Active Atacand 16 MG 1 tablet Orally Once a day for 30 day(s) Not-Taking Propranolol HCl 20 MG/5ML 5 ml Orally Once a day for 30 day(s) Active Menest 0.3 MG 1 tablet Orally Daily for Three Weeks, 1 Week of f for 30 day(s) Not-Taking PROCEDURES No Information RESULTS No Results REASON FOR VISIT er ref MEDICAL (GENERAL) HISTORY Type Description Date Medical [...] Notes Treatment Notes Treatm ent Clinical Notes Dec, Kidney stone (ICD-10 - N20.0) I have reviewed images and plan of care with Dr. Givens. She will require a PCNL on each side. We will start with the left side because the kidney looks healthier on imaging. She will wait 3-4 months to recover and get set up for the right PCNL. Procedure and consent reviewed and signed with pt. She will need preop urine, blood work, cheset x-ray, EKG, and medical and cardiac clearance. Preop orders given today, she will wait to do them until she hears from our office. Dec, Preop testing (ICD-10 - Z01.818) Dec, Other Percutaneous nep hrolithotomy or nephrolithotripsy material was printed,Percutaneous nephrolithotomy or nephrolithotripsy home care material was printed PLAN OF TREATMENT Treatment Notes Assessment Notes Clinical Notes Kidney stone I have reviewed imag es and plan of care with Dr. Givens. She will require a PCNL on each side. We will start with the left side because the kidney looks healthier on imaging. She will wait 3-4 months to recover and get set up for the right PCNL.Procedure and consent reviewed and signed with pt. She will need preop urine, blood work, cheset x-ray, EKG, and medical and cardiac clearance. Preop orders given today, she will wait to do them until she hears from our office. Treatment Notes Test Name Order Date [facility] CHEST 2 VIEW 2020-12-24 Electrocardiogram (EKG) 2020-12-24 NEPHROURETERAL STENT INSERTION 2020-12-24 Future Test Test Name Order Date Basic Metabolic Profile (BMP) [id number] CBC - Complete Blood Count [id number] PT & APTT [id number] UA URINALYSIS 20201224 URINE CULTURE 20201224 Next Appt Details OR Reason: Insurance Providers Payer Name Payer Address Payer Phone Insured Name Patient Relati onship to Insured Coverage Start Date Coverage End Date MEDICARE COMPLETE [facility] [address] [address] [facility] [phone] LYUDMILA YANG self
--- OUTSIDE RECORDS SUMMARY | 2021-03-19 06:23 | CCD ---
Author Author [employer] [facility] Syst ems Organization [facility] Syst ems Address Unknown Phone Unavailable Care Team Providers Care Funeral Counselor Name Role Phone ChonEulalio mayfield Unavailable PROBLEMS Type Condition ICD9-CM Code [id number] Code Onset Dates Condition S tatus W/U Status Risk SNOMED Code Notes Problem Preop testing Z01.818 Active confirmed 28271 9001 Problem UTI (urinary tract infection) N39.0 Active confirm ed 76748123 Problem Ureteral Stone 592.1 Active confirmed 59906 009 Problem Kidney stone N20.0 Active confirmed 4895184 7 ALLERGIES Allergen (clinical drug ingredient) Drug/Non Drug Allergy do cumented on EMR Reaction Allergy Type Onset Date Status ciprofloxacin Cipro([facility] Code:[address]-20) rash Drug Allergy Active Penicillin (For Allergies Use Only) rash Drug Allerg y Active ENCOUNTERS from 1950 to 2021-01-19 Encounter Location Date Provider Diagnosis [facility] Urology [address] [phone] [place] [address] Dec, Eulalio Chon Kidney stone N20.0 ; Preop testing Z01.8 18 and UTI (urinary tract infection) N39.0 IMMUNIZATIONS No Information SOCIAL HISTORY Tobacco Use: Social History Observation Description Date Details (start date - stop date) Never Smoker Sex Assigned At : Social History Observation Description Sex Assigned At Unknown Language: Question Answer Notes Languages spoken: Thai Alcohol Screening: Question Answer Notes Did you have a drink containing alcohol in the past year? No Points 0 Interpretation Negative Tobacco Use: Question Answer Notes Are you a: never smoker REASON FOR REFERRAL No Information VITAL SIGNS Weight 180 lbs Dec, Weight-kg 81.65 kg Dec, Height 67 in Dec, BMI 28.19 kg/m2 Dec, Heart Rate 58 /min Dec, Respiratory Rate 18 /min Dec, Temperature 96.5 degrees Fahrenheit Dec, Oximetry 100 Dec, Blood pressure systolic 122 mm Hg Dec, Blood pressure diastolic 76 mm Hg Dec, MEDICATIONS Medication SIG (Take, [...] Information RESULTS No Results REASON FOR VISIT LEFT PCNL MEDICAL (GENERAL) HISTORY Type Description Date Medical [...] Notes Dec, Kidney stone (ICD-10 - N20.0) - rationale for staged PCNLs discussed - all questions answered - patient would like to have Dr. Shaikh place her perc NU and therefore we will reschedule surgery for late January/early February - will need to complete her medical clearance - preop CBC, BMP, urine culture will need to be repeated Dec, Preop testing (ICD-10 - Z01.818) Dec, UTI (urinary tract infection) (ICD-10 - N39.0) PLAN OF TREATMENT Treatment Notes Assessment Notes Clinical Notes Kidney stone - rationale for stag ed PCNLs discussed- all questions answered- patient would like to have Dr. Shaikh place her perc NU and therefore we will reschedule surgery for late January/early February- will need to complete her medical clearance- preop CBC, BMP, urine culture will need to be repeated Treatment Notes Test Name Order Date CBC - Complete Blood Count 2021-01-16 URINE CULTURE 2021-01-16 Basic Metabolic Profile (BMP) 2021-01-16 Next Appt Details surgery Reason: Provider Name:Eulalio Givens, 11:00:00 AM, [address], , [place], [address], Insurance Providers Payer Name Payer Address Payer Phone Insured Name Patient Relati onship to Insured Coverage Start Date Coverage End Date MEDICARE COMPLETE [facility] [address] [address] [facility] [phone] LYUDMILA YANG self
--- OUTSIDE RECORDS SUMMARY | 2021-03-19 06:23 | CCD | Continuity of Care Document ---
Author Organization Unknown Address Unknown Phone Unavailable Care Team Providers Care Retail Representative Name Role Phone Brandy May MD AUTM [phone] Eulalio Givens MD AUTM [phone] Problems Description No Information Available Social History Type Date Description Comments Sex Unknown Allergies, Adverse Reactions, Alerts Active Allergies Criticality Reaction | Severity Comments Date Penicillin V Unable to assess criticality 01/06/2021 Medications Active Medications SIG Qnty Indications Ordering Provide r Date Inderal LA 80mg Caps ER 24HR 1/ capsule Orally bid Unknown 01/05/2021 Candesartan Cilexetil 16mg Tablets 1 tablet Orally Once a day Unknown 021 Atacand 16mg Tablets 1 tablet Orally Once a day for 30 day(s) Unknown Propranolol HCL 20mg/5ML Solution 5 ml Orally Once a day for 30 day(s) Unknown Menest 0.3mg Tablets 1 tablet Orally Daily for Three Weeks, 1 Week off for 30 day(s) Unknow n Immunizations Description No Information Available Vital Signs Description No Information Available Results Test Acquired Date Facility Test Result H/L Range Note CBC without Differential 12/18/2020 [facility] - not inter faced (315)- - [...] F R 49.3 CBC without Differential 11/05/2020 [facility] - not inter faced (315)- - White Blood Count 9.9 4.0-10.0 Red Blood Count 4.29 4.00-5.40 Platelets 278 150-450 Hemoglobin 13.2 Hematocrit 40.8 Liver Panel 11/05/2020 [facility] - not interfaced (315)- - Alkaline Phosphatase 93 Ast - Sgot 31 Alt - SGPT 19 Bilirubin Total Mass/Vol 0.4 Bilirubin Direct Mass/Vol <0.1 Protein Total 8.5 Albumin Serum/Plasma 3.8 Cholesterol Total Mass/Vol -- Laboratory test finding 11/05/2020 [facility] - not interf aced (315)- - Lipase 191 Procedures Description No Information Available Medical Devices Description No Information Available Encounters Description No Information Available Assessments Description No Information Available Plan of Treatment No Information Available Functional Status Description No Information Available Mental Status Description No Information Available Referrals Description No Information Available"
--- OUTSIDE RECORDS SUMMARY | 2021-03-19 06:23 | CCD ---
Author Author [facility]st [facility] Organization [facility]st em[facility] Address Unknown Phone Unavailable Care Team Providers Care Blind Slat Stapling Machine Operator Name Role Phone Eulalio Givens Unavailable PROBLEMS Type Condition ICD9-CM Code [id number] Code Onset Dates Condition S tatus W/U Status Risk SNOMED Code Notes Problem Preop testing Z01.818 Active confirmed 85703 9001 Problem UTI (urinary tract infection) N39.0 Active confirm ed 23093660 Problem Ureteral Stone 592.1 Active confirmed 09335 009 Problem Kidney stone N20.0 Active confirmed 7466950 7 ALLERGIES Allergen (clinical drug ingredient) Drug/Non Drug Allergy do cumented on EMR Reaction Allergy Type Onset Date Status ciprofloxacin Cipro([facility] Code:[address]-08) rash Drug Allergy Active Penicillin (For Allergies Use Only) rash Drug Allerg y Active ENCOUNTERS from 1950 to 2021-03-02 Encounter Location Date Provider Diagnosis [facility] Urology [address] [phone] [place] [address] Feb, Eulalio Givens IMMUNIZATIONS No Information SOCIAL HISTORY Tobacco Use: Social History Observation Description Date Details (start date - stop date) Never Smoker Sex Assigned At : Social History Observation Description Sex Assigned At Unknown Language: Question Answer Notes Languages spoken: Montenegrin Alcohol Screening: Question Answer Notes Did you [...] Information RESULTS No Results REASON FOR VISIT 03/17/2021 appt MEDICAL (GENERAL) HISTORY Type Description Date Medical [...] TREATMENT Next Appt Details Provider Name:Eulalio Givens, 11:00:00 AM, [address], , [place], [address], Insurance Providers Payer Name Payer Address Payer Phone Insured Name Patient Relati onship to Insured Coverage Start Date Coverage End Date MEDICARE COMPLETE [employer] [address] [address] [facility] [phone] LYUDMILA YANG self
--- OUTSIDE RECORDS SUMMARY | 2021-03-19 06:24 | CCD ---
Author Author [facility] Organization [facility] Address Unknown Phone Unavailable Care Team Providers Care Front End Manager Name Role Phone ALEXOL, Luz Maria MARK MD Unavailable Unavailable ANTECOL, Luz Maria AMRK MD Unavailable Unavailable ANTECOL, Luz Maria MARK MD Unavailable Unavailable ANTECOL, Luz Maria MARK MD Unavailable Unavailable ANTECOL, Luz Maria MARK MD Unavailable Unavailable ANTECOLLuz Maria MD Unavailable Unavailable ANTECOL, Luz Maria MARK MD Unavailable Unavailable ANTECOLLuz Maria MD Unavailable Unavailable ANTECOLLuz Maria MD Unavailable Unavailable ANTECOLLuz Maria MD Unavailable Unavailable ANTECOLLuz Maria MD Unavailable Unavailable ANTECOLLuz Maria MD Unavailable Unavailable ANTECOLLuz Maria MD Unavailable Unavailable ANTECOLLuz Maria MD Unavailable Unavailable ANTECOLLuz Maria MD Unavailable Unavailable ANTECOLLuz Maria MD Unavailable Unavailable ANTECOLLuz Maria MD Unavailable Unavailable ANTECOLLuz Maria MD Unavailable Unavailable ANTECOLLuz Maria MD Unavailable Unavailable ANTECOLLuz Maria MD Unavailable Unavailable ANTECOLLuz Maria MD Unavailable Unavailable ANTECOLLuz Maria MD Unavailable Unavailable ANTECOLLuz Maria MD Unavailable Unavailable ANTECOLLuz Maria MD Unavailable Unavailable ANTECOLLuz Maria MD Unavailable Unavailable ANTECOLLuz Maria MD Unavailable Unavailable ANTECOL, Luz Maria MARK MD Unavailable Unavailable ANTECOL, Luz Maria MARK MD Unavailable Unavailable ANTECOL, Luz Maria MARK MD Unavailable Unavailable ANTECOL, Luz Maria MARK MD Unavailable Unavailable ANTECOL, Luz Maria MARK MD Unavailable Unavailable ANTECOL, Luz Maria MARK MD Unavailable Unavailable ANTECOL, Luz Maria MARK MD Unavailable Unavailable ANTECOL, Luz Maria MARK MD Unavailable Unavailable ANTECOL, Luz Maria MARK MD Unavailable Unavailable ANTECOL, Luz Maria MARK MD Unavailable Unavailable ANTECOL, Luz Maria MARK MD Unavailable Unavailable ANTECOL, Luz Maria MARK MD Unavailable Unavailable ANTECOL, Luz Maria MARK MD Unavailable Unavailable ANTECOL, Luz Maria MARK MD Unavailable Unavailable ANTECOL, Luz Maria MARK MD Unavailable Unavailable ANTECOL, Luz Maria MARK MD Unavailable Unavailable ANTECOL, Luz Maria MARK MD Unavailable Unavailable ANTECOL, Luz Maria MARK MD Unavailable Unavailable ANTECOL, Luz Maria MARK MD Unavailable Unavailable ANTECOL, Luz Maria MARK MD Unavailable Unavailable ANTECOL, Luz Maria MARK MD Unavailable Unavailable ANTECOL, Luz Maria MARK MD Unavailable Unavailable ANTECOL, Luz Maria MARK MD Unavailable Unavailable ANTECOL, Luz Maria MARK MD Unavailable Unavailable ANTECOL, Luz Maria MARK MD Unavailable Unavailable ANTECOL, Luz Maria MARK MD Unavailable Unavailable ANTECOL, Luz Maria MARK MD Unavailable Unavailable ANTECOL, Luz Maria MARK MD Unavailable Unavailable JOHNY, E RAY GETTERING OPERATOR Unavailable Unavailable JOHNY, E RAY GETTERING OPERATOR Unavailable Unavailable JOHNY, E RAY GETTERING OPERATOR Unavailable Unavailable JOHNY, E RAY GETTERING OPERATOR Unavailable Unavailable JOHNY, E RAY GETTERING OPERATOR Unavailable Unavailable JOHNY, E RAY GETTERING OPERATOR Unavailable Unavailable JOHNY, E RAY GETTERING OPERATOR Unavailable Unavailable JOHNY, E RAY GETTERING OPERATOR Unavailable Unavailable JOHNY, E RAY GETTERING OPERATOR Unavailable Unavailable JOHNY, E RAY GETTERING OPERATOR Unavailable Unavailable JOHNY, E RAY GETTERING OPERATOR Unavailable Unavailable JOHNY, E RAY GETTERING OPERATOR Unavailable Unavailable JOHNY, E RAY GETTERING OPERATOR Unavailable Unavailable JOHNY, E RAY GETTERING OPERATOR Unavailable Unavailable JOHNY, E RAY GETTERING OPERATOR Unavailable Unavailable JOHNY, E RAY GETTERING OPERATOR Unavailable Unavailable JOHNY, E RAY GETTERING OPERATOR Unavailable Unavailable JOHNY, E RAY GETTERING OPERATOR Unavailable Unavailable JOHNY, E RAY GETTERING OPERATOR Unavailable Unavailable JOHNY, E RAY GETTERING OPERATOR Unavailable Unavailable JOHNY, E RAY GETTERING OPERATOR Unavailable Unavailable JOHNY, E RAY GETTERING OPERATOR Unavailable Unavailable JOHNY, E RAY GETTERING OPERATOR Unavailable Unavailable JOHNY, E RAY GETTERING OPERATOR Unavailable Unavailable Re-disclosure Warning The records that you are about to access may contain information from federally-assisted alcohol or drug abuse programs. If such information is present, then the following federally mandated warning applies: This information has been disclosed to you from records protected by federal confidentiality rules (42 CFR part 2). The federal rules prohibit you from making any further disclosure of this information unless further disclosure is expressly permitted by the written consent of the person to whom it pertains or as otherwise permitted by 42 CFR part 2. A general authorization for the release of medical or other information is NOT sufficient for this purpose. The Federal rules restrict any use of the information to criminally investigate or prosecute any alcohol or drug abuse patient.The records that you are about to access may contain highly sensitive health information, the redisclosure of which is protected by Article 27-F of the [facility] Public Health law. If you continue you may have access to information: Regarding HIV / AIDS; Provided by facilities licensed or operated by the [facility] Office of Mental Health; or Provided by the [facility] Office for People With Developmental Disabilities. If such information is present, then the following [facility] mandated warning applies: This information has been disclosed to you from confidential records which are protected by state law. State law prohibits you from making any further disclosure of this information without the specific written consent of the person to whom it pertains, or as otherwise permitted by law. Any unauthorized further disclosure in violation of state law may result in a fine or detention sentence or both. A general authorization for the release of medical or other information is NOT sufficient authorization for further disc losure. Family History Family Member Name Family Member Gender Family Member Status Date o f Status Description Data Source(s) Unknown Male Problem [facility]ENT ([facility]) Unknown Male Problem [facility] ([facility]) Encounters Encounter Providers Location Date Indications Data Source(s ) [place] [address] [facility] [address] 03/13/2021 12:00:00 AM EDT eCW1 ([facility]) [place] [address] [facility] [place] [address] 03/02/2021 12:00:00 AM EDT eCW1 ([facility]) Unknown [address] [facility] [address] 02/26/2021 12:00:00 AM EDT eCW1 ([facility]) Outpatient Referrer: RAY MCCLAIN NP 01/19/2021 12:00:00 A M [facility] Outpatient [address] [facility] [address] 01/16/2021 12:00:00 AM EDT eCW1 ([facility]) Outpatient Attender: DEEDEE JASMINE MD Main Office 01/06/2021 08:00:00 AM EDT [facility] ([facility]) Outpatient [address] [facility] [id number] 12/24/2020 12:00:00 AM EDT eCW1 ([facility]) Medications Medication Brand Name Start Date Product Form Dose Route Admi nistrative Instructions Pharmacy Instructions Status Indications Reaction Description Data Source(s) 24 HR Propranolol Hydrochloride 80 MG Extended Release Oral Capsule [Inderal] Inderal LA 01/05/2021 12:00:00 AM EDT active MED[facility] ([facility]) candesartan cilexetil 16 MG Oral Tablet Candesartan Cilexeti l 01/05/2021 12:00:00 AM EDT active M EDENT ([facility]) Propranolol Hydrochloride 20 MG Oral Tablet Propranolol HCL 01/05/2021 12:00:00 AM EDT ORAL active [facility] ([facility]) Insurance Providers Payer name Policy type / Coverage type Policy ID Covered constitution party ID Covered constitution party's relationship to cabral Policy Cabral Plan Information [id number] [facility] MEDICARE COMPLETE G [id number] Self [id number] MEDICARE COMPLETE [id number] SP [id number] [facility] TicketForEvent [id number] Self [id number] [facility] Commercial [id number] Self [id number] [facility] Commercial [id number] Self [id number] Ryegate Izzui ([facility]) Commercial [id number] Self [id number] MEDICARE C [id number] S [id number] MEDICARE COMPLETE-[facility] O [id number] S [id number] MEDICARE COMPLETE [id number] SP [id number] [facility] [id number] Self [id number] Ryegate Izzui [facility] [id number] Self [id number] [facility] [facility] [id number] Self [id number] [facility] [facility] [id number] Self [id number] MEDICARE [id number] SP [id number] A BCBS [place] PPO [id number] SP [id number] EXCELLUS BCBS B [id number] S [id number] EXCELL[employer] BCBS B [id number] S [id number] EXCELL[employer] BCBS FEDERAL [id number] SP [id number] MEDICARE C [id number] S [id number] MEDICARE COMPLETE [id number] SP [id number] Ryegate Izzui [facility] [id number] Self [id number] Problems, Conditions, and Diagnoses Code Display Name Description Problem Type Effective Dates Data Source(s) N39.0 Urinary tract infectious disease UTI (urinary tract in fection) Problem 01/16/2021 12:00:00 AM EDT eCW1 ([facility]) Z01.818 Pre-procedure evaluation check Preop testing Problem 01/16/2021 12:00:00 AM EDT eCW1 ([facility]) R94.31 Electrocardiogram abnormal Electrocardiogram abnormal Problem 01/06/2021 12:00:00 AM EDT MED[facility] ([facility]) Z71.3 Dietary management surveillance Dietary management yuliya veillance Problem 01/06/2021 12:00:00 AM EDT MED[facility] ([facility]) E66.3 Overweight Overweight Problem 01/06/2021 12:00:00 AM ED T MED[facility] ([facility]) Z01.810 Preoperative cardiovascular examination Preoperative cardiovascular examination Problem 01/06/2021 12:00:00 AM EDT [facility] ([facility]) I10 Essential hypertension Essential hypertension Problem 01/06/2021 12:00:00 AM EDT [facility] ([facility]) N20.0 Kidney stone Kidney stone Problem 12/24/2020 12:00:00 A M EDT eCW1 ([facility]) Surgeries/Procedures Procedure Description Date Indications Data Source(s) ECG ROUTINE ECG W/LEAST 12 LDS W/I&R 01/06/2021 12:00: 00 AM EDT [facility] ([facility]) OFFICE OUTPATIENT NEW 45 MINUTES 01/06/2021 12:00:00 A M EDT [facility] ([facility]) Results ID Date Data Source [id number] 02/25/2021 09:50:00 AM EDT [facility] Name Value Range Interpretation Code Description Data Gretel rce(s) Supporting Document(s) SARS-CoV-2 (COVID-19) RNA [Presence] in Respiratory specimen by ELLEN with probe detection Not Detected [facility] This lab was ordered by [facility] and reported by [employer] ID Date Data Source [id number] 12/18/2020 08:23:00 AM EDT [facility] Name Value Range Interpretation Code Description Data Gretel rce(s) Supporting Document(s) SARS-CoV-2 (COVID 19) NEGATIVE - SARS-CoV-2 (COVID19) [facility] This lab was ordered by [facility] a nd reported by [facility]. ID Date Data Source [id number] 12/18/2020 08:16:00 AM EDT [facility] ([facility]) Name Value Range Interpretation Code Description Data Gretel rce(s) Supporting Document(s) Sodium 135 [facility] Calcium [Mass/volume] in Serum or Plasma 9.3 [facility] ([facility]) Chloride [Moles/volume] in Serum or Plasma 101 [facility] ([facility]) Carbon dioxide, total [Moles/volume] in Serum or Plasma 29 [facility] ([facility]) Glucose 143 70-100 [facility] Potassium [Moles/volume] in Serum or Plasma 4.4 [facility] ([facility]) Blood Urea Nitrogen 22 7-18 [facility] ([facility]) Creatinine 1.16 0.6-1.0 [facility] ([facility]) Glomerular filtration rate/1.73 sq M.pre dicted [Volume Rate/Area] in Serum or Plasma by Creatinine-based formula (MDRD) 49.3 [facility] ([facility]) ID Date Data Source [id number] 12/18/2020 08:16:00 AM EDT [facility] Name Value Range Interpretation Code Description Data Gretel rce(s) Supporting Document(s) White Blood Count 13.3 4.0-10.0 [facility] ([facility]) Red Blood Count 4.05 4.00-5.40 [facility] ([facility]) Platelets 267 150-450 [facility] Hemoglobin 12.4 [facility] ([facility]) Hematocrit 38.1 [facility] ([facility]) ID Date Data Source [id number] 11/05/2020 08:13:00 AM EDT [facility] Name Value Range Interpretation Code Description Data Gretel rce(s) Supporting Document(s) Lipoprotein lipase [Enzymatic activity/volume] in Serum or Plasma 191 [facility] ([facility]) ID Date Data Source [id number] 11/05/2020 08:13:00 AM EDT [facility] Name Value Range Interpretation Code Description Data Gretel rce(s) Supporting Document(s) Alkaline phosphatase [Enzymatic activity/volume] in Serum or Plasma 9 3 [facility] ([facility]) Alanine aminotransferase [Enzymatic activity/volume] in Serum or Pl asma 19 [facility] ([facility]) Aspartate aminotransferase [Enzymatic activity/volume] in Serum or Plasma 31 [facility] ([facility]) Bilirubin.direct [Mass/volume] in Serum or Plasma Laboratory test res ult MED[facility] ([facility]) Bilirubin.total [Mass/volume] in Serum or Plasma 0.4 [facility] ([facility]) Albumin [Mass/volume] in Serum or Plasma 3.8 [facility] ([facility]) Protein [Mass/volume] in Serum or Plasma 8.5 [facility] ([facility]) Cholesterol [Mass/volume] in Serum or Plasma Laboratory test result [facility] ([facility]) ID Date Data Source [id number] 11/05/2020 08:13:00 AM EDT [facility] ([facility]) Name Value Range Interpretation Code Description Data Gretel rce(s) Supporting Document(s) White Blood Count 9.9 4.0-10.0 [facility] ([facility]) Red Blood Count 4.29 4.00-5.40 [facility] ([facility]) Platelets 278 150-450 [facility] Hemoglobin 13.2 [facility] ([facility]) Hematocrit 40.8 [facility] ([facility]) Procedure Social History Code Duration Value Status Description Data Source(s ) Smoking 01/16/2021 12:00:00 AM EDT Never Smoker completed Never S moker eCW1 ([facility]) Smoking 01/16/2021 12:00:00 AM EDT Never Smoker completed Never S moker eCW1 ([facility]) Smoking 01/16/2021 12:00:00 AM EDT Never Smoker completed Never S moker eCW1 ([facility]) Smoking 01/16/2021 12:00:00 AM EDT Never Smoker completed Never S moker eCW1 ([facility]) Smoking 01/06/2021 12:00:00 AM EDT Patient has never smoked co mpleted Patient has never smoked [facility] ([facility]) Smoking 12/24/2020 12:00:00 AM EDT Never Smoker completed Never S moker eCW1 ([facility]) Vital Signs ID Date Data Source UNK Name Value Range Interpretation Code Description Data Source(s) Respiratory rate 18 /min 18 /min eCW1 ([facility]) Body temperature 96.5 [degF] 96.5 [degF] eCW1 ( [facility]) Systolic blood pressure 122 mm[Hg] 122 mm[Hg] e CW1 ([facility]) Diastolic blood pressure 76 mm[Hg] 76 mm[Hg] eCW1 ([facility]) Body weight 180 [lb_av] 180 [lb_av] eCW1 ([facility]) Body weight 81.65 kg 81.65 kg eCW1 ([facility]) Body height 67 [in_i] 67 [in_i] eCW1 ([facility]) Body mass index (BMI) [Ratio] 28.19 kg/m2 28.19 kg/m2 W1 ([facility]) Heart rate 58 /min 58 /min eCW1 ([facility]) Heart rate 58 /min 58 /min [facility] ([facility]) Body weight 179.00 [lb_av] 179.00 [lb_av] MEDEN T ([facility]) Body height 66 [in_i] 66 [in_i] [facility] ([facility]) 5'6" Body mass index (BMI) [Ratio] 28.9 kg/m2 28.9 k g/m2 MED[facility] ([facility]) Systolic blood pressure--sitting 116 mm[Hg] 116 mm[Hg] MEDENT ([facility]) Omron, adult cuff/Ra Diastolic blood pressure--sitting 66 mm[Hg] 66 mm[Hg] [facility] ([facility]) Omron, adult cuff/Ra Body weight 180 [lb_av] 180 [lb_av] eCW1 ([facility]) Body weight 81.65 kg 81.65 kg W1 ([facility]) Body height 67 [in_i] 67 [in_i] eCW1 ([facility]) Body mass index (BMI) [Ratio] 28.19 kg/m2 28.19 kg/m2 eCW1 ([facility]) Heart rate 65 /min 65 /min eCW1 ([facility]) Respiratory rate 17 /min 17 /min eCW1 ([facility]) Body temperature 96.9 [degF] 96.9 [degF] eCW1 ( [facility]) Systolic blood pressure 118 mm[Hg] 118 mm[Hg] e CW1 ([facility]) Diastolic blood pressure 64 mm[Hg] 64 mm[Hg] eCW1 ([facility])
[2021-03-19] MEDS ORDERED: CONRAY-60 60% 50ML VIAL (Q9961) As Ordered ONE (07:07)
[2021-03-19] MEDS ORDERED: ceFAZolin SOD 2 GM in IV 1 EA IV ONE (07:10)
[2021-03-19] MEDS ORDERED: ACETAMINOPHEN 1000MG 100ML IV BTL (OFIRMEV) (J0131 PER 10MG) As Ordered ONE (07:14)
[2021-03-19] MEDS ORDERED: ROCURONIUM BROMIDE 50 MG/5 ML VIAL As Ordered ONE (07:14)
[2021-03-19] MEDS ORDERED: propofoL 200 MG/20 ML VIAL As Ordered ONE (07:14)
[2021-03-19] MEDS ORDERED: ONDANSETRON 4MG/2ML VIAL As Ordered ONE (07:14)
[2021-03-19] MEDS ORDERED: KETOROLAC 60MG 2ML VIAL As Ordered ONE (07:14)
[2021-03-19] MEDS ORDERED: SUGAMMADEX SODIUM 500 MG/5 ML VIAL (BRIDION) As Ordered ONE (07:14)
[2021-03-19] MEDS ORDERED: dexameTHASONE 4 MG/ML 1ML VIAL (J1100 PER 1MG) As Ordered ONE (07:14)
[2021-03-19] MEDS ORDERED: LIDOCAINE 2% 100MG/5ML SDV (FOR ANES.) As Ordered ONE (07:14)
[2021-03-19] MEDS ORDERED: fentaNYL 100 MCG/2 ML INJECTION (J3010) As Ordered ONE (07:15)
[2021-03-19] MEDS ORDERED: MIDAZOLAM INJ 2MG/2ML VIAL (J2250 PER 1MG) As Ordered ONE (07:15)
[2021-03-19] MEDS ORDERED: ONDANSETRON 4MG/2ML VIAL IV PRN ×2 (07:25→11:00)
[2021-03-19] MEDS ORDERED: ACETAMINOPHEN TAB 650MG DOSE (2X325MG) PO PRN (07:25)
[2021-03-19] MEDS ORDERED: PERCOCET 5MG/325MG TAB PO PRN ×2 (07:25)
[2021-03-19] MEDS ORDERED: NS 1,000 ML IV SCH (07:25)
[2021-03-19] MEDS: ceFAZolin SOD 1 GM in D5W MINI-BAG PLUS 50 ML IV SCH ×3 (07:50→23:58)
[2021-03-19] MEDS ORDERED: LIDOCAINE 5% OINT 30GM TUBE As Ordered ONE (07:53)
[2021-03-19] MEDS ORDERED: PHENYLEPHRINE 10MG/ML 1ML VIAL (J2370 PER 1) As Ordered ONE (10:10)
--- NOTE | 2021-03-19 10:51 | ROOPDOC ---
[facility] Report Of Operation Report of Operation DATE OF PROCEDURE: 03/19/21 PREPROCEDURE DIAGNOSIS: Left kidney stone. POSTPROCEDURE DIAGNOSIS: Left kidney stone. PROCEDURE: Left percutaneous nephrolithotomy, left antegrade nephrostogram with intraoperative interpretation of images, left ureteral stent placement. SURGEON: Dr. Johny Snell VENEER GRADER: None ANESTHESIA: General. OPERATIVE INDICATIONS: This is a 70 year-old female who was found to have a bilateral staghorn stones. It was recommended that she undergo staged bilateral percutaneous nephrolithotomies. She is here for surgery on her left sided stone today. DESCRIPTION OF PROCEDURE: The patient was brought to the operating room, and general anesthesia was induced. Prophylactic antibiotics were infused. A Montgmoery catheter was placed into the bladder under sterile conditions. The patient was then repositioned in the prone position in preparation for a left-sided percutaneous nephrolithotomy. The patient was then prepped and draped in the usual sterile fashion. At this point, the previously-placed left nephroureteral catheter was utilized to advance a Amplatz Super Stiff wire down the left collecting system and into the bladder. The nephroureteral catheter was then removed, leaving the wire in place. Next, a 2-3 cm transverse incision was made adjacent to the wire. A dual-lumen ureteral catheter was then advanced down into the left renal pelvis. The staghorn stone was not easily seen on fluoroscopy. An antegrade nephrostogram was performed and was negative for extravasation. A Motion guidewire was then advanced down the left collecting system and into the bladder. The dual-lumen ureteral catheter was then removed, leaving both wires in place. The Motion wire was then secured to the drape to serve as a safety wire. Next, over the Super Stiff wire, a balloon dilator was advanced into the left lower pole calyx. The balloon was then inflated and left in place for a few seconds. Next, an access sheath was advanced over the balloon into the left lower pole calyx. The balloon was then let down and removed, leaving the access sheath and the wire in place. At this point, a nephroscope was introduced into the left kidney. We were able to identify the staghorn stone. The stone was then fragmented into several pieces and suctioned out using the ShockPulse. It appeared that all of the stone was removed. The nephroscope was then removed, and a #7-Ukrainian x 22-32 cm double J ureteral stent was advanced down into the left collecting system over the wire. The Super Stiff wire was then removed, and there were adequate curls of the stent in the left kidney and in the bladder. At this point, the access sheath was removed, and the Motion wire was utilized to advance a #18-Ukrainian Eek tip catheter down into the left collecting system. After the tip was within the renal pelvis, the balloon was inflated with about 3 mL of contrast. The Eek tip catheter was also utilized to shoot an antegrade nephrostogram, and this was negative for extravasation. We then secured the Eek tip catheter to the skin with a #2-0 silk suture. This was then connected to gravity drainage and marked the conclusion of the procedure. The patient was placed back in supine position, awakened from anesthesia, and transported to the recovery room in stable condition. ESTIMATED BLOOD LOSS: approximately 100 mL COMPLICATIONS: None. SPECIMENS: Left kidney stone fragments. PLAN: The patient will be admitted to the hospital postoperatively. I will likely remove her left nephrostomy catheter tomorrow. She will be discharged home with the plan to bring her back to the OR in 4-6 weeks to do a percutaneous nephrolithotomy on the right kidney and remove her left ureteral stent at that time. JOHNY SNELL MD Mar 19, 2021 07:43
[2021-03-19] MEDS ORDERED: oxyCODONE 5MG TAB PO PRN (11:00)
[2021-03-19] MEDS ORDERED: METOCLOPRAMIDE INJ 10MG/2ML VIAL (J2765 PER 1) IV PRN (11:00)
[2021-03-19] MEDS ORDERED: HYDROMORPHONE HCL 0.5 MG/ 0.5 ML SYRINGE (J1170 PER 1) IV PRN (11:00)
[2021-03-19] MEDS ORDERED: LR 1,000 ML IV SCH (11:00)
[2021-03-19] MEDS ORDERED: fentaNYL 100 MCG/2 ML INJECTION (J3010) IV PRN (11:00)
[2021-03-19 11:05] LABS: HEMATOCRIT 32.4 % (36.0-47.0); HEMOGLOBIN 10.3 g/dl (12.0-15.5); MEAN CORPUSCULAR HEMOGLOBIN 30.7 pg (27.0-33.0); MEAN CORPUSCULAR HGB CONC 31.8 g/dl (32.0-36.5); MEAN CORPUSCULAR VOLUME 96.7 fl (80.0-96.0); PLATELET COUNT, AUTOMATED 189 10^3/uL (150-450); RED BLOOD COUNT 3.35 10^6/uL (4.00-5.40); WHITE BLOOD COUNT 6.9 10^3/uL (4.0-10.0)
[2021-03-19 11:33] LABS: CALCIUM LEVEL 8.7 MG/DL (8.8-10.2); CREATININE FOR GFR 1.21 MG/DL (0.55-1.30); POTASSIUM SERUM 4.2 MEQ/L (3.5-5.1)
[2021-03-19] MEDS: DOCUSATE SODIUM 100MG CAPSULE PO SCH (20:44)
[2021-03-19] MEDS: PROPRANOLOL 20 MG TAB PO SCH (20:45)
[2021-03-19] MEDS ORDERED: CANDESARTAN 16 MG TABLET PO SCH (21:00)
[2021-03-20 02:36] VITALS: BP 108/64
[2021-03-20] MEDS ORDERED: CIPROFLOXACIN 500MG TABLET PO SCH (06:00)
[2021-03-20 06:13] VITALS: BP 100/53
[2021-03-20 06:37] LABS: HEMATOCRIT 29.4 % (36.0-47.0); HEMOGLOBIN 9.8 g/dl (12.0-15.5); MEAN CORPUSCULAR HEMOGLOBIN 31.6 pg (27.0-33.0); MEAN CORPUSCULAR HGB CONC 33.3 g/dl (32.0-36.5); MEAN CORPUSCULAR VOLUME 94.8 fl (80.0-96.0); PLATELET COUNT, AUTOMATED 216 10^3/uL (150-450); WHITE BLOOD COUNT 14.9 10^3/uL (4.0-10.0)
[2021-03-20 07:09] LABS: CALCIUM LEVEL 8.4 MG/DL (8.8-10.2); CREATININE FOR GFR 1.25 MG/DL (0.55-1.30); GLOMERULAR FILTRATION RATE 45.2 (>45); POTASSIUM SERUM 3.9 MEQ/L (3.5-5.1)
[2021-03-20 08:20] VITALS: BP 112/53
[2021-03-20 08:23] VITALS: BP 112/53
[2021-03-20] MEDS: DOCUSATE SODIUM 100MG CAPSULE PO SCH (08:23)
[2021-03-20] MEDS: PROPRANOLOL 20 MG TAB PO SCH (08:23)
--- NOTE | 2021-03-20 09:45 | IPNPDOC ---
Subjective Review oF Systems Chief Complaint The patient is a 70-year-old female admitted with a reason for visit of Nephrolithiasis. Events since Last Encounter No acute events o/n. Patient notes minimal pain. No n/v. No f/c/ns. Has not ambulated yet. Objective Physical Examination General Exam: Alert, No Acute Distress ABDOMEN EXAM: Soft; No: Tenderness Skin Exam: Nl turgor and temperature Neuro Exam: Normal Speech Psych Exam: Mental status NL, Mood NL Other physical findings L neph tube draining pink urine; catheter draining pink urine Vital Signs/I&O Vital Signs Date Time Temp Pulse Resp B/P (MAP) Pulse Ox O2 Delivery O2 Flow Rate FiO2 03/20/21 08:23 79 112/53 03/20/21 06:13 98.4 16 95 Room Air 03/19/21 10:29 10 I&O- Last 24 Hours up to 6 AM 03/20/21 06:00 Intake Total 2570 ml Output Total 2250 ml Balance 320 ml Laboratory Data Labs 24H Laboratory Tests 2 03/19/21 10:25: 03/19/21 10:54: Nucleated Red Blood Cells % (auto) 0.0, Anion Gap 1L, Glomerular Filtration Rate 47.0, Calcium Level 8.7L 03/20/21 06:16: Nucleated Red Blood Cells % (auto) 0.0, Anion Gap 0L, Glomerular Filtration Rate 45.2, Calcium Level 8.4L CBC/BMP Laboratory Tests 03/19/21 10:54 03/20/21 06:16 Assessment/Plan Date Seen The patient was seen on 03/20/21. Patient Summary This is a 70 y/o F POD1 s/p L PCNL. She is doing well. Hb stable at 9.8. Cr 1.25. Good UOP from [place] and nephrostomy catheter. Plan/VTE VTE Prophylaxis Ordered?: Yes VTE Exclusion Mechanical Proph: N/A:VTE Prophy Ordered Plan - L nephrostomy catheter removed - d/c Montgomery - d/c IVF - percocet prn pain - start cipro for UTI - strict I/Os - SCDs in bed - ambulate - advance diet as tolerated - discharge home later today if pain is controlled and no difficulty voiding JOHNY SNELL MD Mar 20, 2021 09:45
[2021-03-20 10:00] VITALS: BP 93/54
[2021-03-20] MEDS ORDERED: CIPR-249 PO (10:58)
[2021-03-20] MEDS ORDERED: PERCOCET PO (10:58)
[2021-03-20 14:00] VITALS: BP 105/61
--- NOTE | 2021-03-20 16:33 | DSES ---
DISCHARGE SUMMARY DATE OF ADMISSION: 03/19/2021 DATE OF DISCHARGE: 03/20/2021 ADMISSION DIAGNOSIS: Left staghorn calculus. DISCHARGE DIAGNOSIS: Left staghorn calculus. ADMITTING PHYSICIAN: Dr. Eulalio Givens DISCHARGING PHYSICIAN: Dr. Eulalio Givens PROCEDURES PERFORMED: Left percutaneous nephrolithotomy on 03/19/2021. HISTORY OF PRESENT ILLNESS: This is a 70-year-old female who was found to have large bilateral staghorn kidney stones. It was recommended she undergo staged procedures, starting on the left side. She underwent her left-sided procedure and was admitted to the hospital postoperatively. HOSPITAL COURSE: The patient was admitted to the hospital after undergoing the above procedure. Her postoperative course was unremarkable. On postoperative day #1 her labs were stable with a hemoglobin remaining stable at 9.8. Her serum creatinine was also stable at 1.25. All of her vital signs were stable throughout her hospital stay, except her blood pressure was a little bit on the lower end. We therefore held her blood pressure medication. She remained afebrile. By postoperative day #1 she was ambulating well. Her left nephrostomy catheter was removed the morning of postoperative day #1, and then later on her Montgomery catheter was removed. Once her Montgomery catheter was removed she voided without difficulty. Her diet was advanced, and she tolerated a regular diet without nausea and vomiting. By the afternoon of postoperative day #1 she was deemed ready for discharge home. She was discharged home with the plan for her to followup in urology clinic in a few weeks for stent removal. She will ultimately need to be scheduled for a right-sided percutaneous nephrolithotomy later on. She would prefer to do this at some point next year. NIRAV
--- NOTE | 2021-03-22 08:38 | REP ---
INDICATION: LEFT PERCUTANEOUS NEPHROLITHOTOMY. COMPARISON: None. TECHNIQUE: Nine fluoroscopic spot views obtained during percutaneous nephrolithotomy. 1 minute and 2 seconds of fluoroscopy time was provided Dr. Givens for the procedure. FINDINGS: The right renal collecting system is opacified. A guidewire has been placed and over the guidewire a double pigtail catheter is identified. IMPRESSION: As above. <Electronically signed by Carlos Adam > 03/22/21 0991
== END 2021-03-20 16:03 | disposition home or self-care (01) | DRG 661 ==
LOC: M OR 06:18 → M MSPAV 12:40
PROVIDERS: ADMIT Urology; ATTEND Urology
PROC: 0T773DZ Dilation of Left Ureter with Intraluminal Device, Percutaneous Approach (ICD-10-PCS; 2021-03-19)
PROC: 0TC13ZZ Extirpation of Matter from Left Kidney, Percutaneous Approach (ICD-10-PCS; principal; 2021-03-19 07:30)
DX: N20.0 Calculus of kidney (principal); Z79.899 Other long term (current) drug therapy; I10 Essential (primary) hypertension

== ENCOUNTER → 2021-05-04 | Outpatient (CLI) | payer MEDICARE ==
[~2021-05-04] MED LIST changes: +CAND16TA17 PO; -CAND16TA7 PO; +CIPR-249 PO; -LR 1,000 ML IV ONE; +PERCOCET PO
[2021-05-04 12:18] LABS: CALCIUM LEVEL 9.7 MG/DL (8.8-10.2); CREATININE FOR GFR 1.1 MG/DL (0.55-1.30); GLOMERULAR FILTRATION RATE 52.4 (>45); POTASSIUM SERUM 4.3 MEQ/L (3.5-5.1)
== END ==
LOC: M LAB 10:42
PROVIDERS: ATTEND Urology
DX: N20.0 Calculus of kidney (principal)

== ENCOUNTER → 2021-05-08 | Outpatient (REF) | payer MEDICARE ==
[2021-05-08 14:20] LABS: APPEARANCE, URINE CLEAR (CLEAR); BACTERIA, URINE AUTO NEGATIVE (NEGATIVE); BILIRUBIN, URINE AUTO NEGATIVE (NEGATIVE); BLOOD, URINE BLOOD 1+ (NEGATIVE); COLOR, URINE YELLOW (YELLOW); GLUCOSE, URINE (UA) AUTO NEGATIVE (NEGATIVE); KETONE, URINE AUTO NEGATIVE (NEGATIVE); LEUKOCYTE ESTERASE, URINE AUTO 1+ (NEGATIVE); NITRITE, URINE AUTO NEGATIVE (NEGATIVE); PROTEIN, URINE AUTO NEGATIVE (NEGATIVE); RBC, URINE AUTO 6 /HPF (0-3); SPECIFIC GRAVITY URINE AUTO 1.012 (1.002-1.035); SQUAMOUS EPITHELIAL CELL UR AU 1 /HPF (0-6); UROBILINOGEN, URINE AUTO 0.2 mg/dL (0.0-2.0); WBC, URINE AUTO 7 /HPF (0-3)
== END ==
LOC: M SMT 13:46
PROVIDERS: ATTEND Urology
DX: N20.0 Calculus of kidney (principal)

== ENCOUNTER → 2021-06-25 | Outpatient (CLI) | payer MEDICARE | LOC: M PLAIMG 15:09 | PROVIDERS: ATTEND Urology | DX: N20.0 Calculus of kidney (principal) ==

== ENCOUNTER → 2021-10-20 | Outpatient (CLI) | payer MEDICARE ==
[~2021-10-20] MED LIST changes: -D31000TA2 PO; +VITA100093 PO
[2021-10-20 12:39] LABS: CALCIUM LEVEL 10.1 MG/DL (8.8-10.2); CREATININE FOR GFR 1.1 MG/DL (0.55-1.30); GLOMERULAR FILTRATION RATE 52.3 (>39); POTASSIUM SERUM 4.4 MEQ/L (3.5-5.1)
[2021-10-20 14:34] LABS: APPEARANCE, URINE CLEAR (CLEAR); BACTERIA, URINE AUTO NEGATIVE (NEGATIVE); BILIRUBIN, URINE AUTO NEGATIVE (NEGATIVE); BLOOD, URINE BLOOD 1+ (NEGATIVE); COLOR, URINE YELLOW (YELLOW); GLUCOSE, URINE (UA) AUTO NEGATIVE (NEGATIVE); KETONE, URINE AUTO NEGATIVE (NEGATIVE); LEUKOCYTE ESTERASE, URINE AUTO 1+ (NEGATIVE); NITRITE, URINE AUTO NEGATIVE (NEGATIVE); PROTEIN, URINE AUTO NEGATIVE (NEGATIVE); RBC, URINE AUTO 9 /HPF (0-3); SPECIFIC GRAVITY URINE AUTO 1.014 (1.002-1.035); SQUAMOUS EPITHELIAL CELL UR AU 3 /HPF (0-6); UROBILINOGEN, URINE AUTO 0.2 mg/dL (0.0-2.0); WBC, URINE AUTO 9 /HPF (0-3)
== END ==
LOC: M LAB 11:41
PROVIDERS: ATTEND Urology
DX: N20.0 Calculus of kidney (principal)

== ENCOUNTER → 2021-11-10 | Outpatient (CLI) | payer MEDICARE ==
[2021-11-10 13:47] LABS: CALCIUM LEVEL 9.3 MG/DL (8.8-10.2); CREATININE FOR GFR 1.17 MG/DL (0.55-1.30); GLOMERULAR FILTRATION RATE 48.7 (>39); POTASSIUM SERUM 4.4 MEQ/L (3.5-5.1)
== END ==
LOC: M LAB 11:31
PROVIDERS: ATTEND Urology
DX: N20.0 Calculus of kidney (principal)

== ENCOUNTER → 2021-11-11 | Outpatient (REF) | payer MEDICARE ==
[2021-11-11 13:43] LABS: APPEARANCE, URINE HAZY (CLEAR); BACTERIA, URINE AUTO NEGATIVE (NEGATIVE); BILIRUBIN, URINE AUTO NEGATIVE (NEGATIVE); BLOOD, URINE BLOOD 1+ (NEGATIVE); COLOR, URINE YELLOW (YELLOW); GLUCOSE, URINE (UA) AUTO NEGATIVE (NEGATIVE); KETONE, URINE AUTO NEGATIVE (NEGATIVE); LEUKOCYTE ESTERASE, URINE AUTO TRACE (NEGATIVE); MUCUS, URINE SMALL (NEGATIVE); NITRITE, URINE AUTO NEGATIVE (NEGATIVE); PROTEIN, URINE AUTO NEGATIVE (NEGATIVE); RBC, URINE AUTO 3 /HPF (0-3); SPECIFIC GRAVITY URINE AUTO 1.015 (1.002-1.035); SQUAMOUS EPITHELIAL CELL UR AU 5 /HPF (0-6); UROBILINOGEN, URINE AUTO 0.2 mg/dL (0.0-2.0); WBC, URINE AUTO 5 /HPF (0-3)
== END ==
LOC: M SMT 13:02
PROVIDERS: ATTEND Urology
DX: N20.0 Calculus of kidney (principal)

== ENCOUNTER → 2022-02-01 | Outpatient (CLI) | payer MEDICARE ==
[2022-02-01 12:50] LABS: CALCIUM LEVEL 9.6 MG/DL (8.8-10.2); CREATININE FOR GFR 1.14 MG/DL (0.55-1.30); GLOMERULAR FILTRATION RATE 50.2 (>39); POTASSIUM SERUM 4.3 MEQ/L (3.5-5.1)
[2022-02-01 19:45] LABS: APPEARANCE, URINE MANUAL CLEAR (CLEAR); COLOR, URINE MANUAL YELLOW (YELLOW); GLUCOSE, URINE (UA) MANUAL NEGATIVE (NEGATIVE); KETONE, URINE MANUAL NEGATIVE (NEGATIVE); PROTEIN, URINE MANUAL NEGATIVE (NEGATIVE); SPECIFIC GRAVITY,URINE MANUAL 1.015 (1.002-1.035); UROBILINOGEN, URINE MANUAL NORMAL (NORMAL)
[2022-02-01 19:46] LABS: BILIRUBIN, URINE MANUAL NEGATIVE (NEGATIVE); BLOOD URINE MANUAL POSITIVE (NEGATIVE); LEUKOCYTE ESTERASE, URINE MAN NEGATIVE (NEGATIVE); NITRITE, URINE MANUAL NEGATIVE (NEGATIVE)
[2022-02-01 20:13] LABS: RBC, URINE 0-1 /hpf (0-3); SQUAMOUS EPITHELIAL CELL URINE SMALL AMOUNT /hpf (SMALL AMT)
[2022-02-01 20:14] LABS: BACTERIA, URINE NONE SEEN; MUCUS, URINE SMALL AMOUNT (NEGATIVE)
== END ==
LOC: M LAB 11:01
PROVIDERS: ATTEND Urology
DX: N20.0 Calculus of kidney (principal)

== ENCOUNTER → 2022-02-04 | Outpatient (CLI) | payer MEDICARE | LOC: M RAD 11:24 | PROVIDERS: ATTEND Urology | DX: N20.0 Calculus of kidney (principal) ==

== ENCOUNTER → 2022-03-17 | Outpatient (CLI) | payer MEDICARE ==
[~2022-03-17] MED LIST changes: +ISOVUE-370 76% 100ML VIAL As Ordered ONE
== END ==
LOC: M RAD 16:02
PROVIDERS: ATTEND Urology
DX: N20.2 Calculus of kidney with calculus of ureter (principal); N28.1 Cyst of kidney, acquired
CPT/HCPCS: 74178; Q9967

== ENCOUNTER → 2022-04-14 | Outpatient (CLI) | payer MEDICARE ==
[~2022-04-14] MED LIST changes: -ISOVUE-370 76% 100ML VIAL As Ordered ONE
[2022-04-14 12:19] LABS: HEMOGLOBIN 13.2 g/dl (12.0-15.5); MEAN CORPUSCULAR HEMOGLOBIN 30.1 pg (27.0-33.0); MEAN CORPUSCULAR HGB CONC 32.2 g/dl (32.0-36.5); MEAN CORPUSCULAR VOLUME 93.6 fl (80.0-96.0); PLATELET COUNT, AUTOMATED 266 10^3/uL (150-450); RED BLOOD COUNT 4.38 10^6/uL (4.00-5.40); WHITE BLOOD COUNT 12.1 10^3/uL (4.0-10.0)
[2022-04-14 12:37] LABS: APPEARANCE, URINE MANUAL CLEAR (CLEAR); COLOR, URINE MANUAL LT YELLOW (YELLOW)
[2022-04-14 12:37] LABS: INR 0.99; PROTHROMBIN TIME 13.3 SECONDS (12.5-14.5)
[2022-04-14 12:38] LABS: BILIRUBIN, URINE MANUAL NEGATIVE (NEGATIVE); GLUCOSE, URINE (UA) MANUAL NEGATIVE (NEGATIVE); KETONE, URINE MANUAL NEGATIVE (NEGATIVE); PROTEIN, URINE MANUAL NEGATIVE (NEGATIVE); SPECIFIC GRAVITY,URINE MANUAL 1.015 (1.002-1.035); UROBILINOGEN, URINE MANUAL NORMAL (NORMAL)
[2022-04-14 12:39] LABS: BLOOD URINE MANUAL POSITIVE (NEGATIVE); LEUKOCYTE ESTERASE, URINE MAN POSITIVE (NEGATIVE); NITRITE, URINE MANUAL NEGATIVE (NEGATIVE)
[2022-04-14 12:59] LABS: ALBUMIN 3.7 G/DL (3.2-5.2); ALT/SGPT 10 U/L (7.0-40); BILIRUBIN,TOTAL 0.7 MG/DL (0.3-1.2); BLOOD UREA NITROGEN 24 MG/DL (9-23); CALCIUM LEVEL 9.5 MG/DL (8.3-10.6); CARBON DIOXIDE LEVEL 29 MMOL/L (20-31); CHLORIDE LEVEL 102 MMOL/L (98-107); CHOLESTEROL LEVEL 193 MG/DL (<200); CHOLESTEROL RISK RATIO 4.82 (<5); CREATININE FOR GFR 0.89 MG/DL (0.55-1.30); GLOMERULAR FILTRATION RATE > 60.0 (>39); GLUCOSE, FASTING 128 MG/DL (74-106); NON-HDL-C 153 MG/DL; POTASSIUM SERUM 4.3 MMOL/L (3.5-5.1); SODIUM LEVEL 140 MMOL/L (136-145); THYROID STIMULATING HORMONE 1.161 uIU/ML (0.55-4.78); TOTAL PROTEIN 7.4 G/DL (5.7-8.2); TRIGLYCERIDES LEVEL 230 MG/DL (<150)
[2022-04-14 13:00] LABS: HYALINE CAST, URINE NONE SEEN /lpf (0-1); SQUAMOUS EPITHELIAL CELL URINE MOD AMOUNT /hpf (SMALL AMT)
[2022-04-14 13:03] LABS: AMORPHOUS SEDIMENT, URINE SMALL AMOUNT (NEGATIVE)
[2022-04-14 13:04] LABS: BACTERIA, URINE SMALL AMOUNT
[2022-04-14 13:41] LABS: HEMOGLOBIN A1c 6.6 % (4.0-6.0)
== END ==
LOC: M LAB 10:57
PROVIDERS: ATTEND Family Medicine
DX: Z01.818 Encounter for other preprocedural examination (principal); N20.0 Calculus of kidney; I10 Essential (primary) hypertension; Z79.899 Other long term (current) drug therapy

== ENCOUNTER → 2022-04-28 | Outpatient (REF) | payer MEDICARE ==
[~2022-04-28] MED LIST changes: +ADVI200T PO; +DICY20TA20 PO; +PANT40TA29 PO; +POTA4.25 PO; +VITMTA PO
== END ==
LOC: M SMT 15:14
PROVIDERS: ATTEND Urology
DX: Z01.818 Encounter for other preprocedural examination (principal); N20.0 Calculus of kidney; N39.0 Urinary tract infection, site not specified

== ENCOUNTER → 2022-04-29 | Outpatient (REF) | payer MEDICARE ==
[2022-04-29 16:05] LABS: APPEARANCE, URINE MANUAL CLEAR (CLEAR); BILIRUBIN, URINE MANUAL NEGATIVE (NEGATIVE); BLOOD URINE MANUAL TRACE (NEGATIVE); COLOR, URINE MANUAL LT YELLOW (YELLOW); GLUCOSE, URINE (UA) MANUAL NEGATIVE (NEGATIVE); KETONE, URINE MANUAL NEGATIVE (NEGATIVE); LEUKOCYTE ESTERASE, URINE MAN TRACE (NEGATIVE); NITRITE, URINE MANUAL NEGATIVE (NEGATIVE); PROTEIN, URINE MANUAL NEGATIVE (NEGATIVE); UROBILINOGEN, URINE MANUAL NORMAL (NORMAL)
[2022-04-29 16:42] LABS: BACTERIA, URINE SMALL AMOUNT; SQUAMOUS EPITHELIAL CELL URINE SMALL AMOUNT /hpf (SMALL AMT)
== END ==
LOC: M SMT 13:25
PROVIDERS: ATTEND Urology
DX: N39.0 Urinary tract infection, site not specified (principal)

== ENCOUNTER → 2022-05-02 | Outpatient (CLI) | payer MEDICARE | LOC: M LABSMTC 11:10 | PROVIDERS: ATTEND Anesthesiology | DX: Z01.812 Encounter for preprocedural laboratory examination (principal); Z20.822 Contact with and (suspected) exposure to COVID-19 ==

== ENCOUNTER 2022-05-05 08:18 | Day surgery (SDC) | payer MEDICARE ==
[~2022-05-05] VITALS: Ht 167.6 cm; Wt 85.3 kg
[~2022-05-05 08:18] MED LIST changes: +LIDOCAINE 2% 100MG/5ML SDV (FOR ANES.) As Ordered ONE; +LevoFLOXacin IV 500 MG in IV 1 EA IV ONE; +MIDAZOLAM INJ 2MG/2ML VIAL (J2250 PER 1MG) As Ordered ONE; +fentaNYL 100 MCG/2 ML INJECTION As Ordered ONE; +propofoL 200 MG/20 ML VIAL As Ordered ONE
[2022-05-05] MEDS ORDERED: LR 1,000 ML IV SCH ×2 (08:45→11:15)
[2022-05-05] MEDS ORDERED: ISOVUE-300 61% 50ML VIAL As Ordered ONE (09:17)
[2022-05-05] MEDS ORDERED: KETOROLAC 60MG 2ML VIAL As Ordered ONE (10:17)
[2022-05-05] MEDS ORDERED: ONDANSETRON 4MG 2ML VIAL As Ordered ONE (10:17)
[2022-05-05] MEDS ORDERED: METOCLOPRAMIDE INJ 10MG/2ML VIAL As Ordered ONE (10:18)
[2022-05-05] MEDS ORDERED: fentaNYL 100 MCG/2 ML INJECTION As Ordered ONE (10:44)
[2022-05-05] MEDS ORDERED: HYDROMORPHONE HCL 0.5 MG/ 0.5 ML SYRINGE (J1170 PER 1) IV PRN (11:15)
[2022-05-05] MEDS ORDERED: ONDANSETRON 4MG 2ML VIAL IV PRN (11:15)
[2022-05-05] MEDS ORDERED: oxyCODONE 5MG TAB PO PRN (11:15)
[2022-05-05] MEDS ORDERED: fentaNYL 100 MCG/2 ML INJECTION IV PRN (11:15)
[2022-05-05] MEDS ORDERED: FLOM0.4C39 PO (11:43)
[2022-05-05 12:02] VITALS: BP 123/57
[2022-05-05] MEDS ORDERED: PERCOCET 5MG/325MG TAB PO PRN (12:15)
== END 2022-05-05 12:46 | disposition home or self-care (01) ==
LOC: M SDC 08:18
PROVIDERS: ATTEND Urology
DX: N20.0 Calculus of kidney (principal); I10 Essential (primary) hypertension; K21.9 Gastro-esophageal reflux disease without esophagitis; M17.0 Bilateral primary osteoarthritis of knee; M54.50 Low back pain, unspecified; Z88.0 Allergy status to penicillin; Z88.2 Allergy status to sulfonamides; Z88.1 Allergy status to other antibiotic agents; Z79.899 Other long term (current) drug therapy; Z79.1 Long term (current) use of non-steroidal anti-inflammatories (NSAID)
CPT/HCPCS: 52356; 74420; 82365; C1769; C1894; C2617; J1100; J1885; J1956; J2250; J2405; J2765; J3010; Q9967

== ENCOUNTER → 2022-12-01 | Outpatient (CLI) | payer MEDICARE ==
[~2022-12-01] MED LIST changes: -LIDOCAINE 2% 100MG/5ML SDV (FOR ANES.) As Ordered ONE; -LevoFLOXacin IV 500 MG in IV 1 EA IV ONE; -MIDAZOLAM INJ 2MG/2ML VIAL (J2250 PER 1MG) As Ordered ONE; -fentaNYL 100 MCG/2 ML INJECTION As Ordered ONE; -propofoL 200 MG/20 ML VIAL As Ordered ONE
== END ==
LOC: M RAD 12:45
PROVIDERS: ATTEND Urology
DX: N20.0 Calculus of kidney (principal); N28.1 Cyst of kidney, acquired

== ENCOUNTER → 2023-10-19 | Outpatient (CLI) | payer MEDICARE ==
[2023-10-19 10:15] LABS: HEMATOCRIT 38.7 % (36.0-47.0); HEMOGLOBIN 12.5 g/dl (12.0-15.5); MEAN CORPUSCULAR HEMOGLOBIN 30.6 pg (27.0-33.0); MEAN CORPUSCULAR HGB CONC 32.3 g/dl (32.0-36.5); MEAN CORPUSCULAR VOLUME 94.6 fl (80.0-96.0); PLATELET COUNT, AUTOMATED 280 10^3/uL (150-450); RED BLOOD COUNT 4.09 10^6/uL (4.00-5.40); WHITE BLOOD COUNT 8.8 10^3/uL (4.0-10.0)
[2023-10-19 10:33] LABS: HEMOGLOBIN A1c 6.6 % (4.0-6.0)
[2023-10-19 10:45] LABS: ALBUMIN 3.6 G/DL (3.2-5.2); BILIRUBIN,TOTAL 0.8 MG/DL (0.3-1.2); CALCIUM LEVEL 9.9 MG/DL (8.3-10.6); CHOLESTEROL RISK RATIO 5.37 (<5); CREATININE FOR GFR 1.09 MG/DL (0.55-1.30); GLOMERULAR FILTRATION RATE 52.5 (>39); HDL CHOLESTEROL 40.2 MG/DL (>40); LDL CHOLESTEROL 124.6 MG/DL (<100); NON-HDL-C 175.8 MG/DL; POTASSIUM SERUM 4.8 MMOL/L (3.5-5.1); TOTAL PROTEIN 7.3 G/DL (5.7-8.2)
[2023-10-19 10:46] LABS: THYROID STIMULATING HORMONE 1.65 uIU/ML (0.55-4.78)
[2023-10-19 10:47] LABS: TOTAL 25(OH) VITAMIN D 38.9 NG/ML (20.0-100.0)
== END ==
LOC: M LAB 09:29
PROVIDERS: ATTEND Family Medicine
DX: I10 Essential (primary) hypertension (principal); D64.9 Anemia, unspecified; R53.83 Other fatigue

== ENCOUNTER → 2024-01-02 | Outpatient (CLI) | payer MEDICARE | LOC: M WHC 14:01 | PROVIDERS: ATTEND Urology | DX: N20.0 Calculus of kidney (principal) ==

== ENCOUNTER → 2024-01-17 | Outpatient (REF) | payer MEDICARE ==
[2024-01-17 18:59] LABS: APPEARANCE, URINE HAZY (CLEAR); BACTERIA, URINE AUTO NEGATIVE (NEGATIVE); BILIRUBIN, URINE AUTO NEGATIVE (NEGATIVE); BLOOD, URINE BLOOD NEGATIVE (NEGATIVE); COLOR, URINE YELLOW (YELLOW); GLUCOSE, URINE (UA) AUTO NEGATIVE (NEGATIVE); KETONE, URINE AUTO NEGATIVE (NEGATIVE); LEUKOCYTE ESTERASE, URINE AUTO 3+ (NEGATIVE); MUCUS, URINE SMALL (NEGATIVE); NITRITE, URINE AUTO NEGATIVE (NEGATIVE); PROTEIN, URINE AUTO 1+ mg/dL (NEGATIVE); RBC, URINE AUTO 0 /HPF (0-3); SPECIFIC GRAVITY URINE AUTO 1.017 (1.002-1.035); SQUAMOUS EPITHELIAL CELL UR AU 2 /HPF (0-6); TRANSITIONAL EPITHELIAL AUTO 1 /HPF; UROBILINOGEN, URINE AUTO 0.2 mg/dL (0.0-2.0); WBC, URINE AUTO 24 /HPF (0-3)
== END ==
LOC: M SMT 17:09
PROVIDERS: ATTEND Urology
DX: N20.0 Calculus of kidney (principal)

== ENCOUNTER → 2024-02-06 | Outpatient (REF) | payer MEDICARE ==
[2024-02-06 18:39] LABS: APPEARANCE, URINE CLEAR (CLEAR); BACTERIA, URINE AUTO NEGATIVE (NEGATIVE); BILIRUBIN, URINE AUTO NEGATIVE (NEGATIVE); BLOOD, URINE BLOOD NEGATIVE (NEGATIVE); COLOR, URINE YELLOW (YELLOW); GLUCOSE, URINE (UA) AUTO NEGATIVE (NEGATIVE); KETONE, URINE AUTO NEGATIVE (NEGATIVE); LEUKOCYTE ESTERASE, URINE AUTO NEGATIVE (NEGATIVE); NITRITE, URINE AUTO NEGATIVE (NEGATIVE); PROTEIN, URINE AUTO NEGATIVE (NEGATIVE); RBC, URINE AUTO 2 /HPF (0-3); SPECIFIC GRAVITY URINE AUTO 1.013 (1.002-1.035); SQUAMOUS EPITHELIAL CELL UR AU 0 /HPF (0-6); UROBILINOGEN, URINE AUTO 0.2 mg/dL (0.0-2.0); WBC, URINE AUTO 4 /HPF (0-3)
== END ==
LOC: M SMT 17:43
PROVIDERS: ATTEND Urology
DX: N20.0 Calculus of kidney (principal)

== ENCOUNTER → 2024-02-22 | Outpatient (CLI) | payer MEDICARE ==
[2024-02-22 10:43] LABS: HEMATOCRIT 37.1 % (36.0-47.0); MEAN CORPUSCULAR HEMOGLOBIN 30.9 pg (27.0-33.0); MEAN CORPUSCULAR HGB CONC 32.3 g/dl (32.0-36.5); MEAN CORPUSCULAR VOLUME 95.6 fl (80.0-96.0); PLATELET COUNT, AUTOMATED 253 10^3/uL (150-450); RED BLOOD COUNT 3.88 10^6/uL (4.00-5.40); WHITE BLOOD COUNT 13.8 10^3/uL (4.0-10.0)
[2024-02-22 11:06] LABS: TOTAL IRON BINDING CAPACITY 296 UG/DL (250-425)
[2024-02-22 11:07] LABS: ALBUMIN 3.7 G/DL (3.2-5.2); ALKALINE PHOSPHATASE 88 U/L (46-116); ALT/SGPT < 9 U/L (7.0-40); AST/SGOT 10 U/L (<34); BILIRUBIN,TOTAL 0.5 MG/DL (0.3-1.2); BLOOD UREA NITROGEN 47 MG/DL (9-23); CALCIUM LEVEL 10.2 MG/DL (8.3-10.6); CARBON DIOXIDE LEVEL 30 MMOL/L (20-31); CHLORIDE LEVEL 106 MMOL/L (98-107); CHOLESTEROL LEVEL 197 MG/DL (<200); CHOLESTEROL RISK RATIO 5.36 (<5); CREATININE FOR GFR 1.17 MG/DL (0.55-1.30); GLOMERULAR FILTRATION RATE 48.4 (>39); GLUCOSE, FASTING 130 MG/DL (74-106); HDL CHOLESTEROL 36.7 MG/DL (>40); IRON (FE) 90 UG/DL (50-170); LDL CHOLESTEROL 109.7 MG/DL (<100); NON-HDL-C 160.3 MG/DL; PERCENT SATURATION 30.4 % (13.2-45.0); POTASSIUM SERUM 4.7 MMOL/L (3.5-5.1); SODIUM LEVEL 140 MMOL/L (136-145); TOTAL PROTEIN 7.4 G/DL (5.7-8.2); TRIGLYCERIDES LEVEL 253 MG/DL (<150)
[2024-02-22 11:09] LABS: HEMOGLOBIN A1c 6.7 % (4.0-6.0)
[2024-02-22 11:11] LABS: THYROID STIMULATING HORMONE 0.675 uIU/ML (0.55-4.78); TOTAL 25(OH) VITAMIN D 41.3 NG/ML (20.0-100.0)
== END ==
LOC: M LAB 09:46
PROVIDERS: ATTEND Family Medicine
DX: I10 Essential (primary) hypertension (principal); D50.9 Iron deficiency anemia, unspecified

== ENCOUNTER → 2024-07-05 | Outpatient (CLI) | payer MEDICARE | LOC: M RAD 11:07 | PROVIDERS: ATTEND Urology | DX: N20.0 Calculus of kidney (principal); N28.1 Cyst of kidney, acquired ==

== ENCOUNTER → 2024-07-19 | Outpatient (REF) | payer MEDICARE ==
[2024-07-19 13:22] LABS: APPEARANCE, URINE CLEAR (CLEAR); BACTERIA, URINE AUTO NEGATIVE (NEGATIVE); BILIRUBIN, URINE AUTO NEGATIVE (NEGATIVE); BLOOD, URINE BLOOD NEGATIVE (NEGATIVE); COLOR, URINE YELLOW (YELLOW); GLUCOSE, URINE (UA) AUTO NEGATIVE (NEGATIVE); KETONE, URINE AUTO NEGATIVE (NEGATIVE); LEUKOCYTE ESTERASE, URINE AUTO NEGATIVE (NEGATIVE); NITRITE, URINE AUTO NEGATIVE (NEGATIVE); PROTEIN, URINE AUTO NEGATIVE (NEGATIVE); RBC, URINE AUTO 1 /HPF (0-3); SPECIFIC GRAVITY URINE AUTO 1.013 (1.002-1.035); SQUAMOUS EPITHELIAL CELL UR AU 0 /HPF (0-6); UROBILINOGEN, URINE AUTO 0.2 mg/dL (0.0-2.0); WBC, URINE AUTO 2 /HPF (0-3)
== END ==
LOC: M SMT 12:36
PROVIDERS: ATTEND Urology
DX: N20.0 Calculus of kidney (principal)

== ENCOUNTER → 2024-08-06 | Outpatient (CLI) | payer MEDICARE | LOC: M PLAIMG 13:08 | PROVIDERS: ATTEND Urology | DX: N20.0 Calculus of kidney (principal) ==

== ENCOUNTER 2024-09-08 01:15 | Emergency (ER) | payer MEDICARE ==
[~2024-09-08] VITALS: Ht 157.5 cm; Wt 82.0 kg
[2024-09-08 05:04] VITALS: BP 136/69; TEMP 97; O2SAT 99
== END 2024-09-08 05:07 | disposition home or self-care (01) ==
LOC: M ED 01:15
DX: M25.551 Pain in right hip (principal); I48.91 Unspecified atrial fibrillation; I10 Essential (primary) hypertension; K21.9 Gastro-esophageal reflux disease without esophagitis; E55.9 Vitamin D deficiency, unspecified; Z88.0 Allergy status to penicillin; Z88.2 Allergy status to sulfonamides; Z79.1 Long term (current) use of non-steroidal anti-inflammatories (NSAID); Z79.810 Long term (current) use of selective estrogen receptor modulators (SERMs); Z79.899 Other long term (current) drug therapy

== ENCOUNTER → 2025-02-06 | Outpatient (REF) | payer MEDICARE ==
[~2025-02-06] MED LIST changes: -FLOM0.4C39 PO; +TAMS-18 PO
== END ==
LOC: M SFHCPLAZ 14:28
PROVIDERS: ATTEND Family Medicine
DX: Z53.9 Procedure and treatment not carried out, unspecified reason (principal)